=== PATIENT | female | born 1950 | race Caucasian/White ===

== ENCOUNTER 2023-03-22 08:39 | Outpatient (REF) | payer MEDICARE, BC, SELFPAY ==
--- NOTE | ~2023-03-22 | XR_ITS ---
EXAMINATION: XR KNEE STANDING, BILATERAL XR KNEE, LEFT CLINICAL INFORMATION: Left knee pain. COMPARISON: None available. FINDINGS: Bilateral AP Knee: There is moderate loss of medial compartment left knee joint space. Mild loss of medial and lateral compartment right knee and lateral compartment left knee joint space seen. There is periarticular spurring in both compartments of both knees. No loose bodies or bony erosive changes seen. Left Knee: There is severe loss of patellofemoral joint space with mild suprapatellar joint effusion. The patellar articulating surface appears slightly irregular. No loose body seen. No bony erosive changes. XR/XR knee LT 2V IMPRESSION: Moderate degenerative arthritic changes, slightly worse in the medial compartment left knee. Degenerative arthritic changes patellofemoral compartment left knee with mild suprapatellar joint effusion and irregular-appearing patellar articular surface.
--- NOTE | ~2023-03-22 | XR_ITS ---
EXAMINATION: XR KNEE STANDING, BILATERAL XR KNEE, LEFT CLINICAL INFORMATION: Left knee pain. COMPARISON: None available. FINDINGS: Bilateral AP Knee: There is moderate loss of medial compartment left knee joint space. Mild loss of medial and lateral compartment right knee and lateral compartment left knee joint space seen. There is periarticular spurring in both compartments of both knees. No loose bodies or bony erosive changes seen. Left Knee: There is severe loss of patellofemoral joint space with mild suprapatellar joint effusion. The patellar articulating surface appears slightly irregular. No loose body seen. No bony erosive changes. XR/XR knee standing BI IMPRESSION: Moderate degenerative arthritic changes, slightly worse in the medial compartment left knee. Degenerative arthritic changes patellofemoral compartment left knee with mild suprapatellar joint effusion and irregular-appearing patellar articular surface.
== END 2023-03-22 08:40 | disposition home or self-care (01) ==
LOC: HO.HOSX 08:39
PROVIDERS: Visit Provider Orthopaedic Surgery
DX: M17.12 Unilateral primary osteoarthritis, left knee (principal)
CPT/HCPCS: 20610; 73560; 73565; J1100

== ENCOUNTER 2023-03-22 09:48 | Outpatient (AMB) | payer MEDICARE, BC, SELFPAY ==
--- NOTE | 2023-03-22 10:14 | MHC.OFFVIS ---
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 She had x rays updated in the office today. She says her pain started 3 weeks ago but she has had knee pain in the past. She is taking motrin at home for the pain and is using ice with some relief. 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 She has pain with daily activity, worse with walking. She reports intermittent pain for several years but says this is worse in the last 3 weeks. She denies any prior treatment. She denies any falls or known injury. Review of Systems Const All systems reviewed & are unremarkable except as noted in HPI and below Physical Exam Const General: no acute distress, alert and awake Orientation/consciousness: patient oriented x3 HEENT Head: Yes normocephalic and Yes atraumatic Eyes EOM: EOMs intact bilaterally Resp Effort & Inspection: normal respiratory effort and able to speak in complete sentences Cardio Jugular venous distension: no JVD Skin General skin exam: turgor normal Rashes: no rashes Neuro General: patient oriented x3 Extrem Other: Left Knee: Psych Appearance: grossly normal Affect: normal affect Attitude: cooperative Office Procedures Joint Injection/Drain Joint Injection/Drain Details: Injected 1 mL of Decadron and 3 mL 1% lidocaine and 3 mL of 0.25% Marcaine. Site was prepped using aseptic technique. Patient tolerated the procedure well. Primary Site: left knee Approach Used: anterolateral Coding 12961 - Large joint Procedure code (CPT) selection complete Results Reviewed Results Reviewed: 03/22/23 10:32 BUPivacaine MPF 0.25 % [Sensorcaine-MPF 0.25% 10 ML] 10 ml .ROUTE .STK-MED ONE Lidocaine HCl 2 % MPF [Xylocaine 2 % MPF] 5 ml .ROUTE .STK-MED ONE dexAMETHasone sod phosphate [Decadron] 4 mg .ROUTE .STK-MED ONE I personally reviewed relevant radiographs. Severe left knee medial compartment OA Assessment & Plan Assessment & Plan (1) Osteoarthritis of left knee: Code(s): M17.12 - Unilateral primary osteoarthritis, left knee Plan: This is a 72 year old woman with severe left knee medial compartment OA, and ~3 weeks of worsening pain & effusion. She complains of pain with daily activity, worse with ambulation. She denies any prior treatment. I discussed her diagnosis and treatment options. I injected her left knee today, which she tolerated well. She can follow up prn. Plan Scribed for Foster Yen MD by Silas Fernandez, medical insurance claims processor, on 03/22/23 at 10:30 AM, EST. Orders: Orders XR knee standing BI 03/22/23 M25.569 - Pain in unspecified knee XR knee LT 2V 03/22/23 M25.569 - Pain in unspecified knee Coding Level of Care Code New Pt Level 3 (84249) Diagnoses Osteoarthritis of left knee M17.12 CPT Codes Coding - 24066 Large joint: 83168 - Large joint ([id number])
== END 2023-03-22 10:55 | disposition home or self-care (01) ==
PROVIDERS: Visit Provider Orthopaedic Surgery
DX: M17.12 Unilateral primary osteoarthritis, left knee (principal)
CPT/HCPCS: 20610; 99203

== ENCOUNTER 2023-11-30 12:15 | Outpatient (REF) | payer MEDICARE, BC, SELFPAY ==
[2023-11-30 12:16] LABS: MANUAL DIFF FLAG NO
[2023-11-30 12:21] LABS: Basophils Percent Auto 0.5 % (0-2); Eosinophils Absolute Auto 0.1 X10*3/uL (0.0-0.4); Eosinophils Percent Auto 1.2 % (0-4); Hematocrit 40.6 % (37.0-47.0); Hemoglobin 13.7 g/dl (12.0-16.0); Imm Gran Abs Auto 0.02 X10*3/uL (0.00-0.03); Imm Gran Pct Auto 0.3 % (0.0-0.4); Lymphocytes Absolute Auto 1.8 X10*3/uL (1.2-4.9); Lymphocytes Percent Auto 27.5 % (20-40); Mean Corpuscular HGB Conc 33.7 g/dl (31.0-35.0); Mean Corpuscular Hemoglobin 30.2 pg (27.0-33.0); Mean Corpuscular Volume 89.4 fL (80.0-98.0); Mean Platelet Volume 9.6 fL (9.4-12.3); Monocytes Absolute Auto 0.4 X10*3/uL (0.1-1.2); Monocytes Percent Auto 6.5 % (2-11); Neutrophils Absolute Auto 4.2 x10*3/uL (2.0-8.3); Platelet Count 356 X10*3/uL (160-400); Red Blood Count 4.54 X10*6/uL (4.20-5.50); Red Cell Distribution Width 13.2 % (11.0-16.0); White Blood Count 6.5 X10*3/uL (4.8-10.8)
[2023-11-30 12:22] LABS: Appearance Urine Clear; Color Urine Yellow; Glucose Urine UA Negative (Negative); Leukocyte Esterase Urine Small (1+) (Negative); Nitrite Urine Negative (Negative); Specific Gravity - Urine <= 1.005 (1.005-1.025); UMIC TRIGGER UA YES; Urine Blood Negative (Negative); Urine Ketones Negative (Negative); Urine Protein Negative (Neg-Trace)
[2023-11-30 12:39] LABS: Alanine Aminotransferase 13 U/L (0-31); Albumin Level 4.5 g/dL (3.5-5.0); Alkaline Phosphatase 90 U/L (39-117); Anion Gap 11 (12-20); Aspartate Amino Transferase 20 U/L (5-31); Bilirubin Total 0.7 mg/dL (0.0-1.0); Blood Urea Nitrogen 14 mg/dL (9-16); Calcium 10.5 mg/dL (8.4-10.2); Carbon Dioxide 26 mmol/L (22-29); Chloride 104 mmol/L (96-108); Cholesterol 313 mg/dL (<200); Estimated Glomerular Filt Rate > 60; Glucose Fasting 101 mg/dL (60-99); HDL Cholesterol 76 mg/dL (>40); LDL Cholesterol Calculated 214 mg/dL (<100); Sodium 137 mmol/L (135-145); Total Protein 7.6 g/dL (6.5-8.0); Triglycerides 117 mg/dL (<150)
[2023-11-30 12:52] LABS: Bacteria Urine 2+ (None Seen); Hyaline Casts Urine 0-2 /LPF (0-2); RBC Urine 0-2 /HPF (0-2); Squamous Epithelial Cell Urine 0-2 /HPF (0-2); WBC Urine 0-5 /HPF (0-5)
== END 2023-11-30 12:16 | disposition home or self-care (01) ==
LOC: HO.LNP 12:15
PROVIDERS: Visit Provider Internal Medicine
DX: E78.00 Pure hypercholesterolemia, unspecified (principal)
CPT/HCPCS: 80053; 80061; 81001; 85025

== ENCOUNTER 2024-02-11 10:43 | Day surgery (SDC) | payer MEDICARE, SELFPAY ==
--- NOTE | 2024-02-10 09:56 | HO.ANESPROP2 ---
Documented by User: Hannah Yanes NP 02/10/24 09:56 HPI - Anesthesia Eval Consult details Narrative: 73yo F for Upper Endoscopy and Colonoscopy PMFSH Active Problems Active Problems: All Active Problems Osteoarthritis of left knee (Acute) Past Medical History Medical History Encounter for Hemoccult screening Hypercalcemia Hyperlipidemia Social History Social History Are you a primary medicare biller to a significant other at home: No Do you presently have visiting nurse or other home services: No Patient Tobacco Use Status: Never used Tobacco Use of substances other than those prescribed or required for medical reasons: No Have you been hit, kicked, punched, or otherwise hurt by someone within the past year? If so, by whom?: No Advance Directives: No Advance Directives Information Provided: Yes Recently lost weight without trying: No Meds Allergies Allergy/AdvReac Type Severity Reaction Status Date / Time No Known Allergies Allergy Verified 03/22/23 10:16 Home Medications ?Medication ?Instructions ?Recorded ?Confirmed ?Last Taken ?Type calcium 500 mg tablet 500 mg PO BID 02/10/24 Unknown History rosuvastatin 20 mg tablet 20 mg PO DAILY 02/10/24 Unknown History Assessment and Plan Assessment Anesthesia Assessment: Chart Reviewed Documented by User: Alma Sheffield MD 02/11/24 11:15 PMFSH Past Medical History Medical History Encounter for Hemoccult screening Hypercalcemia Hyperlipidemia Family History Family history of problems with anesthesia: No Surgical History History of Problems with Anesthesia: No Social History Social History Are you a primary medicare biller to a significant other at home: No Do you presently have visiting nurse or other home services: No Patient Tobacco Use Status: Never used Tobacco Use of substances other than those prescribed or required for medical reasons: No Have you been hit, kicked, punched, or otherwise hurt by someone within the past year? If so, by whom?: No Advance Directives: No Advance Directives Information Provided: Yes Recently lost weight without trying: No Meds Allergies Allergy/AdvReac Type Severity Reaction Status Date / Time No Known Allergies Allergy Verified 03/22/23 10:16 Home Medications ?Medication ?Instructions ?Recorded ?Confirmed ?Last Taken ?Type calcium 500 mg tablet 500 mg PO BID 02/10/24 Unknown History rosuvastatin 20 mg tablet 20 mg PO DAILY 02/10/24 Unknown History Exam Airway Mallampati Class: II TM Dist: >3cm Neck ROM: Limited Heart: rrr Lungs: cta Assessment and Plan Assessment Anesthesia Assessment: Anesthesia Plan Discussed Final Anesthetic Review Family History of Problems with Anesthesia: No History of Problems with Anesthesia: No NPO: Yes ASA Class: II Final Preanesthetic Review: No Changes in Pt Med Stat, Meds/Allgs Chart Reviewed, Consent Obtained/Reviewed and Anes Risks/Benef Reviewed Patient Risk: Low Procedure Risk: Low Anesthetic Plan Anesthetic Plan: MAC: Disposition: Standard PACU
--- NOTE | 2024-02-11 10:50 | MHC.SHP ---
Pre-Procedural Eval Section A - 24 Hr Update-Section A only Date of Service: 02/11/24 The patient is an INPATIENT: No Changes since office visit: No Cold of Flu in the past 2 weeks, No New Medical Problems, No Changes in Medication and No Patient answered all questions The patient has been examined within 24 hours of the surgical procedure. The History & Physical has been completed within 30 days and I have reviewed it.: Yes Section B - Complete if H&P > 30 days Chief Complaint: Other fecal abnormalities Allergies: Allergies Allergy/AdvReac Type Severity Reaction Status Date / Time No Known Allergies Allergy Verified 03/22/23 10:16 Plan I have reviewed the history and physical and performed a pertinent physical examination on my patient. No changes have occurred unless specified. Time Spent With Patient Time: Total time managing care of this patient today ____ minutes.
[2024-02-11 10:52] VITALS: BP 156/61; PULSE 71; RESP 16; TEMP 36.7; O2SAT 97; BMI 22.1
[2024-02-11] MEDS: Lactated Ringers 1,000 ML 100 ML IVCONT (11:04)
[2024-02-11 11:55] VITALS: BP 145/69; PULSE 60; RESP 12; TEMP 36.3; O2SAT 97
[2024-02-11 12:10] VITALS: BP 155/68; PULSE 57; RESP 18; TEMP 36.2; O2SAT 97
--- NOTE | 2024-02-11 13:21 | OP_ITS ---
DATE OF SERVICE: 02/11/2024 SURGEON: Nelson Delgado MD INDICATIONS: Hemoccult positive stools. PREOPERATIVE DIAGNOSIS: POSTOPERATIVE DIAGNOSIS: PROCEDURE PERFORMED: Upper endoscopy with biopsy, colonoscopy to the terminal ileum. ESTIMATED BLOOD LOSS: COMPLICATIONS: ANESTHESIA: Monitored anesthesia care. ASSISTANTS: SPECIMENS: DESCRIPTION OF PROCEDURE: A history and physical was performed. The risks and benefits of the procedure were explained to the patient and informed consent was obtained. The patient was placed in the left lateral decubitus position. The Olympus video gastroscope was introduced into the esophagus, stomach, and duodenum. Examination was performed and the scope was removed. She was repositioned for colonoscopy. A digital rectal exam was performed and was found to be normal. The Olympus pediatric video colonoscope was introduced into the rectum and advanced to the cecum. The cecum was identified by transillumination, palpation, and identification of ileocecal valve. Examination was performed and the scope was removed. She tolerated both procedures well and was returned to recovery area in stable condition. FINDINGS: Upper endoscopy, esophagus: The esophagus was normal. There was a small sliding hiatal hernia. The EG junction was irregular. This was biopsied. Stomach: The stomach showed some focal linear streaks of erythema with superficial erosions in the antrum consistent with antral gastritis. Biopsies were obtained from the antrum. Duodenum: The bulb and 2nd portion were normal. Colonoscopy: The terminal ileum was examined and appeared normal. The visualized colonic mucosa was normal. There was moderate sigmoid diverticulosis with luminal narrowing and a tortuous sigmoid. No mass lesions were identified. The quality of prep was good. No polyps were identified. Retroflexed examination showed some small internal hemorrhoids. IMPRESSION: 1. Gastritis. 2. Hiatal hernia. 3. Normal colonoscopy with diverticulosis. RECOMMENDATION: Follow up the biopsy results Screening colonoscopy is optional in 10 years based on age. MD LUDIN Schmidt/KARENL / [id number] MTDChela
== END 2024-02-11 13:15 | disposition home or self-care (01) ==
PROVIDERS: PCP Internal Medicine; Visit Provider Internal Medicine Gastroenterology
PROC: (CPT 45378; principal; 2024-02-11 11:40)
DX: R19.5 Other fecal abnormalities (principal); K57.30 Diverticulosis of large intestine without perforation or abscess without bleeding; K64.8 Other hemorrhoids; K29.50 Unspecified chronic gastritis without bleeding; K44.9 Diaphragmatic hernia without obstruction or gangrene; E78.5 Hyperlipidemia, unspecified; E83.52 Hypercalcemia; Z79.899 Other long term (current) drug therapy
CPT/HCPCS: 45378; 43239; 88305; 88313; 88342; J2405; J2704

== ENCOUNTER 2024-04-25 11:20 | Outpatient (REF) | payer MEDICARE, SELFPAY ==
[2024-04-25 12:50] LABS: Alanine Aminotransferase 18 U/L (0-31); Albumin Level 4.5 g/dL (3.5-5.0); Alkaline Phosphatase 85 U/L (39-117); Aspartate Amino Transferase 23 U/L (5-31); Bilirubin Direct 0.3 mg/dL (0.0-0.5); Bilirubin Total 0.8 mg/dL (0.0-1.0); Calcium 10.4 mg/dL (8.4-10.2); Cholesterol 203 mg/dL (<200); HDL Cholesterol 79 mg/dL (>40); LDL Cholesterol Calculated 107 mg/dL (<100); Total Protein 7.4 g/dL (6.5-8.0); Triglycerides 85 mg/dL (<150)
== END 2024-04-25 11:21 | disposition home or self-care (01) ==
LOC: HO.LNP 11:20
PROVIDERS: Visit Provider Internal Medicine
DX: E78.00 Pure hypercholesterolemia, unspecified (principal); E83.52 Hypercalcemia
CPT/HCPCS: 80061; 80076; 82310

== ENCOUNTER 2025-01-11 16:09 | Outpatient (REF) | payer MEDICARE, SELFPAY | END 2025-01-11 16:10 | disposition home or self-care (01) | LOC: HO.HOSX 16:09 | PROVIDERS: Visit Provider Physician Assistant | DX: Z13.89 Encounter for screening for other disorder (principal) ==

== ENCOUNTER 2025-01-12 07:58 | Outpatient (AMB) | payer MEDICARE, SELFPAY ==
--- OUTSIDE RECORDS SUMMARY | 2024-02-11 07:40 | XMS_ITS ---
Author Organization [facility] Address [address] [place] [phone] Care Team Providers Care Analytics Manager Name Role Phone Luther BENAVIDES, Mariano Primary Care Provider Nelson Rocha Jr [phone] REASON FOR VISIT abnormal findings in stool Problems Problem Type SNOMED Code ICD Code Onset Dates Problem Status W/U Status Risk Notes Problem Gastritis (6670775) Gastritis (K29.70) Active confirmed Encounters Encounter Location Date Provider Diagnosis [facility] [place] [address] [place] [phone] 02/11/2024 Nelson Delgado Jr Abnormal findings in [...] * ANAHI CHANCE HDOB:1950 (74 yo F)Acc No.[id number]:02/11/2024 EGD and COL/MAC Patient: ANAHI VERDUGO Provider: Xiomara Delgado MD :1950 A ge:73 Y S ex:Female Date:02/11/2024 Address:[address] [place], [place] [phone] Pcp:Mariano Sloan MD Subjective: * Chief Complaints: [...] DOCD, 0528F RCMND FLW-UP 10 YRS DOCD, [address] UPPER GI ENDOSCOPY, BIOPSY * * The named appointment provid er may or may not be the originator of this progress note, and it is not deemed complete until electronically signed by the appointment provider. Sign off status: Pending * Provider: Xiomara Delgado MD Date: 0 02/11/2024 Generated for Galileo fried/Dafne/Doniitting on: 0 01/12/2025 08:01 AM EDT
--- OUTSIDE RECORDS SUMMARY | 2025-01-12 08:02 | XMS_ITS | Patient Health Record ---
Author Organization Mariano Sloan MD Address [address] [place] [phone] Care Team Providers Care Negative Retoucher Name Role Phone Mariano Sloan Primary Care Provider [phone] Allergies No Known Allergies Results Component Value Reference Range Notes MAMMOGRAM DIGITAL BILATERAL SCREEN Reviewed date:02/11/2024 01:19:22 PM Interpretation:Negative Performing Lab: Notes/Report: Negative colonoscopy Reviewed date:03/24/2024 10:54:45 AM Interpretation:repeat 10y Performing Lab: Notes/Report: repeat 10y Pathology Reviewed date:02/17/2024 06:50:33 PM Interpretation: Performing Lab:[facility], [address] [place] [phone] Notes/Report: ---- Name: Damaris Cates Age/Sex: 73/F : 1950 Unit#: [id number] Attend Dr: Nelson Delgado MD Re02/11/24 Status : [facility] Location: [facility] Disch: ---- SPEC : [id number] RECD : 02/11/24 STATUS: [facility] NUM: [id number] MIRTA: 02/11/24-[address]: Nelson Delgado MD ENTERED: 02/11/24 20 SP TYPE: Surgical OTHR DR: Mariano Sloan MD ORDERED: HE Stain/6, Gross Micro L4/2, IHC, Special st. 2, H. pylori, AB/PAS Addendum Addendum 1 Entered: 02/17/24 Immunostain for H. pylori on A is negative. Additional level with AB/PAS on B is negative for intestinal metaplasia. Controls stain appropriately. Addendum Signed (signature on file) Cristina Connors 02/17/24 1036 ---- Diagnosis A. Gastric antrum, biopsy: Gastric antral mucosa with mild reactive changes and minimal chronic inactive gastritis; negative for intestinal metaplasia and dysplasia. B. Esophagogastric junction, biopsy: Squamous mucosa with hyperplasia and focal intraepithelial neutrophils and eosinophils (up to 2 per high-power field) consistent with esophagitis and columnar mucosa with mild-moderate chronic active inflammation; no intestinal metaplasi a identified on initial levels; negative for dysplasia Comment: (A): Immunostain for H. pylori pending; addendum to follow. (B): Additional leve l with AB/PAS stain pending; addendum to follow. Clinical History Pre-Op Dx: Blood in stool Post-Op Dx: Gastriti s, hiatal hernia, normal colon Microscopic Description Microscopic sections reviewed. Material Received A. Antral bx's B. EG junction bx's CONTINUED ON NEXT PAGE ---- Name: Damaris Cates Age/Sex: 73/F : 1950 Unit#: [id number] Attend Dr: Nelson Delgado MD Re02/11/24 Status : [facility] Location: [facility] Disch: ---- SPEC : [id number] RECD : 02/11/24-1206 STATUS: [facility] NUM: [id number] MIRTA: 02/11/[address] [facility] [address]: Nelson Delgado MD ENTERED: 02/11/24- 20 SP TYPE: Surgical OTHR DR: Mariano Sloan MD ORDERED: HE Stain/6, Gross Micro L4/2, IHC, Special st. 2, H. pylori, AB/PAS Gross Description Received in two parts. Part A: Received in formalin labeled ?antral bx's? are 2 denney-pink irregular tissue fragments each measu ring 0.25 cm in greatest dimension, submitted in toto in a cassette labeled A. Part B: Received in formalin labeled ?EG junction bx's? are 5 denney-white and denney-pink irregular tissue fragments ranging from 0.15-0.3 cm, submitted in toto in a cassette labeled B. CEDS Special studies orde red and performed: Immunostain for H. pylori on A1; AB/PAS stains on B1. Copies To: Mariano Sloan MD [facility] [address] [place] [id number] Nelson Delgado MD [facility] [address] ROB Fletcher [phone] ---- Signed (signature on file) Cristina Byars 02/14/24 1250 ---- END OF REPORT Liver Panel Reviewed date:04/25/2024 08:03:12 PM Interpretation: Performing Lab:[address] [phone] Notes/Report: Bilirubin Total 0.8 0.0-1.0 mg/dL Bilirubin Direct 0.3 0.0-0.5 mg/dL Aspartate Amino Transferase 23 5-31 U/L Alanine Aminotransferase 18 0-31 U/L Total Protein 7.4 6.5-8.0 g/dL Albumin Level 4.5 3.5-5.0 g/dL Alkaline Phosphatase 85 39-117 U/L Calcium Reviewed date:04/25/2024 08:03:39 PM Interpretation: Performing Lab:[address] [phone] Notes/Report: Calcium 10.4 8.4-10.2 mg/dL Lipid Panel Reviewed date:04/25/2024 08:03:02 PM Interpretation: Performing Lab:[facility], [address] [place] [phone] Notes/Report: Triglycerides 85 <150 mg/dL Desirable Triglyceride: [...] low results in patients with liver disease. Reason For Referral Reason Colon cancer screeni ng Diagnosis 1 Colon cancer screeni ng (Z12.11) Diagnosis 2 Guaiac positive stoo ls (R19.5) Referral Organization Mariano Sloan MD Referring Provider First Name Mariano Referring Provider Last Name Luther Referring Provider Speciality Internal M edicine Referred Provider Nelson Delgado Referred Provider Specialty Gastroentero logy General Notes Adleaida Eastman 03:29:24 PM EDT > info faxed Jaren Annette 01/28/2024 09:30:51 AM EDT > called patient with info Referral Priority Routine Referral Appointment Date 01/31/2024 Medications Medication SIG (Take, Route, Frequency, Duration) Notes Start Date End Date Status Rosuvastatin Calcium 20 MG 1 tablet Oral ly Once a day 01/25/2024 Active Immunizations Vaccine Route Administration Date Status Comme nts Influenza High Dose IM Intramuscular 04/25/2024 Administer ed Social History Tobacco Use: Social History Observation [...] Problem Status W/U Status Risk Notes Problem Hypercholesterem ia (272.0) Active confirmed Problem 39847767 Hypercalcemia (E83.52) Active confirme d Problem 51346575 Essential hypert ension (I10) Active confirmed Problem 06297696 Hypercholesterol emia (E78.00) Active confirmed Vital Signs Blood pressure diastolic 76 mm Hg 05/02/2024 Height 61 in 05/02/2024 Blood pressure systolic 130 mm Hg 05/02/2024 Weight 121 lbs 05/02/2024 BMI 22.86 kg/m2 05/02/2024 Encounters Encounter Location Date Provider Diagnosis Mariano Sloan MD [address] [place] [address] Drive [address] [place] [phone] 04/25/2024 Mariano Sloan Hypercalcemia E83.52 ; Encounter for immunization Z23 and Hypercholesterolemia E78.00 Mariano Sloan MD [address] [place] [address] Drive [address] [place] [phone] 01/25/2024 Mariano Sloan Colon cancer screeni ng Z12.11 ; Hypercholesterolemia E78.00 ; Hypercalcemia E83.52 and Guaiac positive stools R19.5 Mariano Sloan MD [address] [place] [address] Drive [address] [place] [phone] 05/02/2024 Mariano Sloan Hypercalcemia E83.52 and Hypercholesterolemia E78.00 Assessments Encounter Date Diagnosis (ICD Code) Assessment Notes Treatment Notes Treatment Clinical Notes Section Notes 04/25/2024 Hypercalcemia (ICD-1 0 - E83.52) 04/25/2024 Encounter for immunization (ICD-10 - Z23) 01/25/2024 Colon cancer screeni ng (ICD-10 - Z12.11) make appt with dr ruffin or aliya, guaiac positive 01/25/2024 Hypercholesterolemia (ICD-10 - E78.00) discussed labs with patient, will initiate treatment with statin 05/02/2024 Hypercalcemia (ICD-1 0 - E83.52) just minimally up will just observe 05/02/2024 Hypercholesterolemia (ICD-10 - E78.00) doing great on meds, will continue current regiment 04/25/2024 Hypercholesterolemia (ICD-10 - E78.00) 01/25/2024 Hypercalcemia (ICD-1 0 - E83.52) 01/25/2024 Guaiac positive stoo ls (ICD-10 - R19.5) make urgent appt with dr ruffin or aliya 01/25/2024 Other mammogram order given to patient being done at [facility], patient verbalized understanding of medication and directions for use. Plan Of Treatment Pending Test Test Name Order Date MAMMOGRAM DIGITAL BILATERAL SCREEN 01/24 Next Appt Details Provider Name:Mariano Caballero ier, 01/19/2025 07:00:00 AM, [address] [place] [address], [facility] [address], [place], [place], [phone], Provider Name:Mariano Caballero ier, 01/26/2025 11:00:00 AM, [address] [place] [address], [address], [place], [place], [phone], Insurance Providers Payer Name Payer Address Payer Phone Subscriber Number Group Number Insured Name Patient Relationship to Insured Coverage Start Date Coverage End Date [employer] [address] [place] [address] [id number] Damaris Cates Self - patient is the insured [employer] [facility] [address] [place], [place] [phone] [id number] Damaris Cates Self - patient is the insured Medical (General) History Medical History History ICD Code due for colonoscopy 02/11/24 colonoscopy- repeat 10y
--- NOTE | 2025-01-12 08:14 | MHC.OFFVIS ---
Vital Signs 01/12/25 08:20 Height 5 ft 1 in Weight 116 lb BMI 21.9 Intake Visit Reasons: OV - LT knee OA, last injection 03/22/23 Intake Note: Damaris is a 74 year old female who presents today for a follow up of left knee OA, last injection on 03/22/[address] Yen. Patient reports injection provided no relief at all. Her pain has gotten worse since her last visit. Her pain is located at the anterior aspect of knee. She has mild swelling. Finds no relief with Tylenol/ibuprofen. Tried and failed at home exercise programs. Patient would like to discuss other options such as gel injections. Allergies No Known Allergies Allergy (Verified 01/12/25 08:22) Medication List - Last Reconciled 01/12/25 by Mickie Desir PA-C calcium 500 mg PO BID rosuvastatin 20 mg PO DAILY HPI HPI OV - LT knee OA, last injection 03/22/23: Details: 74 yo female presents to the office today for left knee pain which is constant. She states the pain does not limit her ability to perform daily activities. She did see Dr. Yen in 2022 and had an injection which she states was not helpful. She states she has not done physical therapy. Most of her pain is localized to the anterior portion of the knee. [facility] Medical History Encounter for Hemoccult screening Hypercalcemia Hyperlipidemia Social History Are you a primary career technical education teacher to a significant other at home: No Do you presently have visiting nurse or other home services: No Patient Tobacco Use Status: Never used Tobacco Review of Systems Const All systems reviewed & are unremarkable except as noted in HPI and below Physical Exam Vital Signs: BMI result Body Mass Index 21.9 Const General: cooperative and no acute distress Orientation/consciousness: patient oriented x3 Resp Effort & Inspection: normal respiratory effort and able to speak in complete sentences Cardio Peripheral pulses: Peripheral pulses 2+ throughout Neuro General: patient oriented x3 Extrem Other: Left knee is normal to inspection. No erythema. No joint effusion. She has full range of motion with crepitus. Lateral retropatellar tenderness present. Calf supple and nontender neurovascularly intact. Results Reviewed Results Reviewed: X-rays of the left knee obtained in the office today and reviewed by me show severe osteoarthritis Assessment & Plan Assessment & Plan (1) Osteoarthritis of left knee: Code(s): M17.12 - Unilateral primary osteoarthritis, left knee Category: Medical Plan: We discussed options which includes conservative treatment with physical therapy and injections. She is not interested in attending formal physical therapy. I did offer her a steroid injection but she would like to defer on this as it has not helped in the past. At this time we will proceed with prior authorization for gel injections. She is not interested in total knee arthroplasty as she is still able to perform activities without significant limitations. I did send her a prescription for Celebrex for acute flare-ups. We will see her back once the injections are approved. Orders: Orders XR knee LT 3V Today M25.562 - Pain in left knee Medications: New celecoxib (Celebrex) 200 mg PO BID 60 caps 3RF 30 days Coding Level of Care Code New Pt Level 3 (61982) Complex EM visit Add On G2211 Diagnoses Osteoarthritis of left knee M17.12
[2025-01-12 08:20] VITALS: BMI 21.9
== END 2025-01-12 08:36 | disposition home or self-care (01) ==
LOC: HO.HOS 07:59
PROVIDERS: PCP Internal Medicine; Visit Provider Physician Assistant
DX: M17.12 Unilateral primary osteoarthritis, left knee (principal)
CPT/HCPCS: 99203; G2211

== ENCOUNTER → 2025-01-12 08:01 | Outpatient (BNV) | payer MEDICARE, SELFPAY | PROVIDERS: Visit Provider Radiology Diagnostic Radiology | DX: M25.562 Pain in left knee (principal) | CPT/HCPCS: 73562 ==

== ENCOUNTER 2025-01-12 08:08 | Outpatient (REF) | payer MEDICARE, SELFPAY ==
--- OUTSIDE RECORDS SUMMARY | 2024-02-11 07:40 | XMS_ITS ---
Author Organization [facility] Address [address] [place] [phone] Care Team Providers Care Telecommunications Line Installer Name Role Phone Luther BENAVIDES, Mariano Primary Care Provider Nelson Rocha Jr REASON FOR VISIT abnormal findings in stool Problems Problem Type SNOMED Code ICD Code Onset Dates Problem Status W/U Status Risk Notes Problem Gastritis (2040728) Gastritis (K29.70) Active confirmed Encounters Encounter Location Date Provider Diagnosis [facility] [address] [place] [phone] 02/11/2024 Nelson Delgado Jr Abnormal findings in [...] * ANAHI CHANCE HDOB:1950 (74 yo F)Acc No.[id number]:02/11/2024 EGD and COL/MAC Patient: ANAHI VERDUGO Provider: Xiomara Delgado MD :1950 A ge:73 Y S ex:Female Date:02/11/2024 Address:[address] [place], [place] [phone] Pcp:Mariano lSoan MD Subjective: * Chief Complaints: * 1 [...] DOCD, 0528F RCMND FLW-UP 10 YRS DOCD, [address] UPPER GI ENDOSCOPY, BIOPSY * * The named appointment provid er may or may not be the originator of this progress note, and it is not deemed complete until electronically signed by the appointment provider. Sign off status: Pending * Provider: Xiomara Delgado MD Date: 0 02/11/2024 Generated for Galileo fried/Dafne/Doniitting on: 0 01/15/2025 08:19 AM EDT
--- NOTE | ~2025-01-12 | XR_ITS ---
EXAMINATION: XR KNEE, LEFT CLINICAL INFORMATION: M25.562 - Pain in left knee COMPARISON: 03/22/2023. TECHNIQUE: AP view bilateral knees standing, lateral and patellofemoral views left knee. FINDINGS: RIGHT KNEE: No fracture or dislocation. Normal alignment. Mild to moderate medial and lateral compartment joint space narrowing. Subtle chondrocalcinosis suspected. Normal soft tissues. LEFT KNEE: No fracture, dislocation, or suspicious bone lesion. There is normal alignment. There is moderate to severe medial compartment osteoarthrosis with near [id number] appearance and marginal osteophytic spurring. Suspect subtle chondrocalcinosis. There are moderate changes of osteoarthrosis in the patellofemoral compartment and lateral compartment. There is minimal varus angulation of the knee. There is a small suprapatellar joint effusion. There is no soft tissue abnormality. XR/XR knee LT 3V IMPRESSION: 1. Tricompartmental osteoarthrosis of the left knee, moderate to severe in the medial compartment. 2. Suspect subtle chondrocalcinosis which may indicate underlying CPPD. Electronically signed by: Chava Damian MD 01/12/2025 08:38 AM EDT
--- OUTSIDE RECORDS SUMMARY | 2025-01-15 08:19 | XMS_ITS | Patient Health Record ---
Author Organization Mariano Sloan MD Address [address] [place] [phone] Care Team Providers Care Activities Volunteer Name Role Phone Mariano Sloan Primary Care Provider Allergies No Known Allergies Results Component Value Reference Range Notes MAMMOGRAM DIGITAL BILATERAL SCREEN Reviewed date:02/11/2024 01:19:22 PM Interpretation:Negative Performing Lab: Notes/Report: Negative colonoscopy Reviewed date:03/24/2024 10:54:45 AM Interpretation:repeat 10y Performing Lab: Notes/Report: repeat 10y Pathology Reviewed date:02/17/2024 06:50:33 PM Interpretation: Performing Lab:[facility], [address] [place] [phone] Notes/Report: ---- Name: Damaris Cates Age/Sex: 73/F : 1950 Unit#: [id number] Attend Dr: Nelson Delgado MD Re02/11/24 Status : [facility] Location: [facility] Disch: ---- SPEC : [id number] RECD : 02/11/24 STATUS: [facility] NUM: [id number] MIRTA: 02/11/24-[address]: Nelson Delgado MD [...] Damaris Cates Age/Sex: 73/F : 1950 Unit#: [id number] Attend Dr: Nelson Delgado MD Re02/11/24 Status : [facility] Location: [facility] Disch: ---- SPEC : [id number] RECD : 02/11/24-1206 STATUS: [facility] NUM: [id number] MIRTA: 02/11/[address] [facility] [address]: Nelson Delgado MD ENTERED: 02/11/24- 20 [...] To: Mariano Sloan MD [facility] [address] [place] [address] [facility] [address] ROB Fletcher [phone] ---- Signed (signature on file) Cristina Fairbanks 02/14/24 1250 ---- END OF REPORT Liver Panel Reviewed date:04/25/2024 08:03:12 PM Interpretation: Performing Lab:[address] [phone] Notes/Report: Bilirubin Total 0.8 0.0-1.0 mg/dL Bilirubin Direct 0.3 0.0-0.5 mg/dL Aspartate Amino Transferase 23 5-31 U/L Alanine Aminotransferase 18 0-31 U/L Total Protein 7.4 6.5-8.0 g/dL Albumin Level 4.5 3.5-5.0 g/dL Alkaline Phosphatase 85 39-117 U/L Calcium Reviewed date:04/25/2024 08:03:39 PM Interpretation: Performing Lab:[address] [phone] Notes/Report: Calcium 10.4 8.4-10.2 mg/dL Lipid Panel Reviewed date:04/25/2024 08:03:02 PM Interpretation: Performing Lab:[facility], [address] [place] [phone] Notes/Report: Triglycerides 85 <150 mg/dL Desirable Triglyceride: [...] Problem Hypercholesterem ia (272.0) Active confirmed Problem 79780403 Hypercalcemia (E83.52) Active confirme d Problem 25698209 Essential hypert ension (I10) Active confirmed Problem 02360987 Hypercholesterol emia (E78.00) Active confirmed Vital Signs Blood pressure diastolic 76 mm Hg 05/02/2024 Height 61 in 05/02/2024 Blood pressure systolic 130 mm Hg 05/02/2024 Weight 121 lbs 05/02/2024 BMI 22.86 kg/m2 05/02/2024 Encounters Encounter Location Date Provider Diagnosis Mariano Sloan MD [address] [place] [address] Drive [address] [place] [id number] 04/25/2024 Mariano Sloan Hypercalcemia E83.52 ; Encounter for immunization Z23 and Hypercholesterolemia E78.00 Mariano Sloan MD [address] [place] [address] Drive [address] [place] [id number] 01/25/2024 Mariano Sloan Colon cancer screeni ng Z12.11 ; Hypercholesterolemia E78.00 ; Hypercalcemia E83.52 and Guaiac positive stools R19.5 Mariano Sloan MD [address] [place] [address] Drive [address] [place] [id number] 05/02/2024 Mariano Sloan Hypercalcemia E83.52 and Hypercholesterolemia [...] order given to patient being done at [facility], patient verbalized understanding of medication and directions for use. Plan Of Treatment Pending Test Test Name Order Date MAMMOGRAM DIGITAL BILATERAL SCREEN 01/24 Next Appt Details Provider Name:Mariano Caballero ier, 01/19/2025 07:00:00 AM, [address] [place] [address], [facility] [address], [place], [place], [phone], Provider Name:Mariano Caballero ier, 01/26/2025 11:00:00 AM, [address] [place] [address], [address], [place], [place], [phone], Insurance Providers Payer Name Payer Address Payer Phone Subscriber Number Group Number Insured Name Patient Relationship to Insured Coverage Start Date Coverage End Date [employer] [address] [place] [address] [id number] Damaris Cates Self - patient is the insured [employer] AND [facility] [address] [place], [place] [id number] Damaris Cates Self - patient is the insured Medical (General) History Medical History History ICD Code due for colonoscopy 02/11/24 colonoscopy- repeat 10y
== END 2025-01-12 08:09 | disposition home or self-care (01) ==
LOC: HO.HOSX 08:08
PROVIDERS: Visit Provider Physician Assistant
DX: M17.12 Unilateral primary osteoarthritis, left knee (principal)
CPT/HCPCS: 73562; 99202

== ENCOUNTER 2025-01-19 10:39 | Outpatient (REF) | payer MEDICARE, SELFPAY ==
--- OUTSIDE RECORDS SUMMARY | 2024-02-11 07:40 | XMS_ITS ---
Author Organization [facility] Address [address] [place] [phone] Care Team Providers Care Sweetbread Trimmer Name Role Phone Luther BENAVIDES, Mariano Primary Care Provider Nelson Rocha Jr [phone] REASON FOR VISIT abnormal findings in stool Problems Problem Type SNOMED Code ICD Code Onset Dates Problem Status W/U Status Risk Notes Problem Gastritis (6159108) Gastritis (K29.70) Active confirmed Encounters Encounter Location Date Provider [place] [facility] [place] [place] [address] [place] [phone] 02/11/2024 Nelson Delgado Jr Abnormal findings in [...] * ANAHI CHANCE HDOB:1950 (74 yo F)Acc No.[id number]:02/11/2024 EGD and COL/MAC Patient: ANAHI VERDUGO Provider: Xiomara Delgado MD :1950 A ge:73 Y S ex:Female Date:02/11/2024 Address:[address] [place], [place] [phone] Pcp:Mariano Sloan MD Subjective: * Chief Complaints: [...] DOCD, 0528F RCMND FLW-UP 10 YRS DOCD, [address] UPPER GI ENDOSCOPY, BIOPSY * * The named appointment provid er may or may not be the originator of this progress note, and it is not deemed complete until electronically signed by the appointment provider. Sign off status: Pending * Provider: Xiomara Delgado MD Date: 0 02/11/2024 Generated for Galileo fried/Dafne/Doniitting on: 0 01/19/2025 10:44 AM EDT
--- OUTSIDE RECORDS SUMMARY | 2025-01-19 03:00 | XMS_ITS ---
Author Organization Mariano Sloan MD Address [address] [place] [phone] Care Team Providers Care City Attorney Name Role Phone Mariano Sloan Primary Care Provider REASON FOR VISIT yearly fasting labs Encounters Encounter Location Date Provider Diagnosis Mariano Sloan MD [address] [place] [address] Drive [address] [place] [phone] 01/19/2025 Mariano Sloan Hypercholesterolemia E78.00 ; Hypercalcemia E83.52 and Essential hypertension I10 Assessments Encounter Date Diagnosis (ICD Code) Assessment Notes Treatment Notes Treatment Clinical Notes Section Notes 01/19/2025 Hypercholesterolemia (ICD-10 - E78.00) 01/19/2025 Hypercalcemia (ICD-1 0 - E83.52) 01/19/2025 Essential hypertensi on (ICD-10 - I10) Plan Of Treatment Pending Test Test Name Order Date Complete Blood Count Auto Diff 5 Comprehensive [place]. Panel Fast 5 Lipid Panel 01/19/2025 UA ClnCatch+Micro w/rflx Cult 01/19/2025 Next Appt Details Provider Name:Mariano Caballero ier, 01/26/2025 11:00:00 AM, [address], [address], [place], [place], [phone], Progress Notes * ROBSONAlmazYolandaOB:1950 ( 74 yo F)Acc No.[id number]:01/19/2025 Progress Note Patient: Damaris VERDUGO Provider: Tana Sloan MD :1950 A ge:74 Y S ex:Female Date:01/19/2025 Address:[place], [phone] Subjective: * Chief Complaints: * 1 . Yearly fasting labs. * Medical History: Objective: * Vitals: Assessment: * Assessment: 1. H ypercholesterolemia - E78.00 (Primary) 2 . H ypercalcemia - E83.52? 3. E ssential hypertension - I10 Plan: * Treatment: 2. H ypercalcemia L AB: Complete Blood Count Auto Diff L AB: Comprehensive [place]. Panel Fast L AB: Lipid Panel L AB: UA ClnCatch+Micro w/rflx Cult 3. E ssential hypertension L AB: Complete Blood Count Auto Diff L AB: Comprehensive [place]. Panel Fast L AB: Lipid Panel L AB: UA ClnCatch+Micro w/rflx Cult * Procedure Codes: 3 6415 VENIPUNCT, ROUTINE* * * The named appointment provid er may or may not be the originator of this progress note, and it is not deemed complete until electronically signed by the appointment provider. Sign off status: Pending * Provider: Tana Sloan MD Date: 01/19/2025 Generated for Galileo fried/Dafne/Doniitting on: 01/19/2025 10:44 AM EDT
[2025-01-19 10:42] LABS: MANUAL DIFF FLAG NO
[2025-01-19 10:56] LABS: Hematocrit 42.4 % (37.0-47.0); Hemoglobin 14.5 g/dl (12.0-16.0); Imm Gran Abs Auto 0.02 X10*3/uL (0.00-0.03); Imm Gran Pct Auto 0.3 % (0.0-0.4); Lymphocytes Absolute Auto 2.7 X10*3/uL (1.2-4.9); Mean Corpuscular HGB Conc 34.2 g/dl (31.0-35.0); Mean Corpuscular Hemoglobin 30.5 pg (27.0-33.0); Mean Corpuscular Volume 89.3 fL (80.0-98.0); NRBC Abs Auto 0.000 X10*3/uL (0.0-0.012); NRBC Pct Auto 0.0 /100WBC (0.0-0.2); Platelet Count 336 X10*3/uL (160-400); Red Blood Count 4.75 X10*6/uL (4.20-5.50); White Blood Count 7.3 X10*3/uL (4.8-10.8)
[2025-01-19 11:03] LABS: Appearance Urine Cloudy; Glucose Urine UA Negative (Negative); PH 6.0 (5.0-9.0); Specific Gravity - Urine 1.015 (1.005-1.025); UMIC TRIGGER UACC YES
[2025-01-19 11:12] LABS: Alanine Aminotransferase 16 U/L (0-31); Albumin Level 4.9 g/dL (3.5-5.0); Alkaline Phosphatase 95 U/L (39-117); Anion Gap 14 (12-20); Aspartate Amino Transferase 23 U/L (5-31); Blood Urea Nitrogen 13 mg/dL (9-16); Calcium 10.6 mg/dL (8.4-10.2); Carbon Dioxide 26 mmol/L (22-29); Chloride 99 mmol/L (96-108); Cholesterol 201 mg/dL (<200); Estimated Glomerular Filt Rate > 60; HDL Cholesterol 70 mg/dL (>40); Potassium 4.0 mmol/L (3.3-5.1); Sodium 135 mmol/L (135-145); Total Protein 7.6 g/dL (6.5-8.0); Triglycerides 117 mg/dL (<150)
[2025-01-19 11:15] LABS: UACC Culture Trigger YES
== END 2025-01-19 10:40 | disposition home or self-care (01) ==
LOC: HO.LNP 10:39
PROVIDERS: Visit Provider Internal Medicine
DX: E83.52 Hypercalcemia (principal); I10 Essential (primary) hypertension; E78.00 Pure hypercholesterolemia, unspecified
CPT/HCPCS: 80053; 80061; 81001; 85025; 87086; 87088; 87186

== ENCOUNTER 2025-02-02 10:43 | Outpatient (REF) | payer MEDICARE, SELFPAY ==
--- OUTSIDE RECORDS SUMMARY | 2024-02-11 07:40 | XMS_ITS ---
Author Organization [facility] Address [address] [place] [phone] Care Team Providers Care Gmat Tutor Name Role Phone Luther BENAVIDES, Mariano Primary Care Provider Nelson Rocha Jr REASON FOR VISIT abnormal findings in stool Problems Problem Type SNOMED Code ICD Code Onset Dates Problem Status W/U Status Risk Notes Problem Gastritis (8244343) Gastritis (K29.70) Active confirmed Encounters Encounter Location Date Provider Diagnosis [facility] [place] Out[place] [address] [place] [phone] 02/11/2024 Nelson Delgado Jr Abnormal findings in [...] * ANAHI CHANCE HDOB:1950 (74 yo F)Acc No.[id number]:02/11/2024 EGD and COL/MAC Patient: ANAHI VERDUGO Provider: Xiomara Delgado MD :1950 A ge:73 Y S ex:Female Date:02/11/2024 Address:[address] [place], [place] [phone] Pcp:Mariano Sloan MD Subjective: * Chief Complaints: [...] DOCD, 0528F RCMND FLW-UP 10 YRS DOCD, [address] UPPER GI ENDOSCOPY, BIOPSY * * The named appointment provid er may or may not be the originator of this progress note, and it is not deemed complete until electronically signed by the appointment provider. Sign off status: Pending * Provider: Xiomara Delgado MD Date: 0 02/11/2024 Generated for Galileo fried/Dafne/Doniitting on: 0 02/02/2025 11:21 AM EDT
--- OUTSIDE RECORDS SUMMARY | 2024-05-02 06:00 | XMS_ITS ---
Author Organization Mariano Sloan MD Address [address] [place] [phone] Care Team Providers Care Digital Solutions Architect Name Role Phone Mariano Sloan Primary Care Provider [phone] REASON FOR VISIT 3 month Medications Medication [...] Location Date Provider Diagnosis Mariano Sloan MD [address] [place] [address] [place] [phone] 05/02/2024 Mariano Sloan Hypercalcemia E83.52 and Hypercholesterolemia [...] Details Provider Name:Mariano zuniga, 07/20/2025 08:00:00 AM, [address] [place] [address], Suite [facility], [place], [place], [phone], Provider Name:Mariano Caballero ier, 07/27/2025 10:00:00 AM, [address], [address], [place], [place], [phone], Provider Name:Mariano Caballero ier, 01/21/2026 07:00:00 AM, [address], [address], [place], [place], [phone], Provider Name:Mariano Caballero ier, 01/28/2026 09:30:00 AM, [address], [address], [place], [place], [phone], Progress Notes * Zoey CHANCEOB:1950 ( 73 yo F)Acc No.[id number]:05/02/2024 Progress Notes Patient: Damaris Patel Provider: Tana Sloan MD :1950 A ge:73 Y S ex:Female Date:05/02/2024 Address:[address] [place], [place] [phone] Subjective: * Chief Complaints: * 3 month [...] true * Provider: Tana Sloan MD Date: 1 07/02/2023 Generated for Galileo fried/Dafne/Doniitting on: 0 02/02/2025 11:22 AM EDT History and Physical Notes * HPI (History of Present Illness) Category Sub-Category Detail Notes Category Not es Symptom(s) patient is a 73 yo female here for 3month follow up visit
--- OUTSIDE RECORDS SUMMARY | 2025-01-19 03:00 | XMS_ITS ---
Author Organization Mariano Sloan MD Address [address] [place], [place] [phone] Care Team Providers Care Circuit Designer Name Role Phone Mariano Sloan Primary Care Provider [phone] Results Component Value Reference Range Notes Complete Blood Count Auto Di ff Reviewed date:01/19/2025 04:27:51 PM Interpretation: Performing Lab:[facility], [address] [place] [phone] Notes/Report: White Blood Count 7.3 4.8-10.8 X10*3/uL [...] NRBC Abs Auto 0.000 0.0-0.012 X10*3/uL Comprehensive [place]. Panel Fa st Reviewed date:01/19/2025 04:25:59 PM Interpretation: Performing Lab:[facility], [address] [place] [phone] Notes/Report: Sodium 135 135-145 mmol/L Potassium 4.0 [...] Panel Reviewed date:01/19/2025 12:42:53 PM Interpretation: Performing Lab:[facility], [address] [place] [phone] Notes/Report: Triglycerides 117 <150 mg/dL Desirable Triglyceride: [...] t Reviewed date:01/19/2025 01:27:44 PM Interpretation: Performing Lab:[facility], [address] [place] [phone] Notes/Report: Urine, Clean Catch Color Urine Yellow Appearance Urine Cloudy PH 6.0 5.0-9.0 Glucose Urine UA Negative Negative mg/dL Urine Blood Trace Negative Specific [place] - Urine 1.015 1.005-1.025 Urine Protein 30 [...] Location Date Provider Diagnosis Mariano Sloan MD [address] [place] [address] [place] [phone] 01/19/2025 Mariano Sloan Hypercholesterolemia E78.00 ; Hypercalcemia E83.52 and Essential hypertension I10 Assessments Encounter Date Diagnosis (ICD Code) Assessment Notes Treatment Notes Treatment Clinical Notes Section Notes 01/19/2025 Hypercholesterolemia (ICD-10 - E78.00) 01/19/2025 Hypercalcemia (ICD-1 0 - E83.52) 01/19/2025 Essential hypertensi on (ICD-10 - I10) Plan Of Treatment Next Appt Details Provider Name:Mariano zuniga, 07/20/2025 08:00:00 AM, [address] [place] [address], [address], [place], [place], [phone], Provider Name:Mariano zuniga, 07/27/2025 10:00:00 AM, [address], [address], [place], [phone], Provider Name:Mariano Caballero ier, 01/21/2026 07:00:00 AM, [address], [address], [place], [place], [phone], Provider Name:Mariano Caballero ier, 01/28/2026 09:30:00 AM, [address], [address], [place], [place], [phone], Progress Notes * Zoey CHANCEOB:1950 ( 74 yo F)Acc No.[id number]:01/19/2025 Progress Note Patient: Damaris VERDUGO Provider: Tana Sloan MD :1950 A ge:74 Y S ex:Female Date:01/19/2025 Address:[address] [place], [place] [phone] Subjective: * Chief Complaints: * 1 . Yearly fasting labs. * Medical History: Objective: * Vitals: Assessment: * Assessment: 1. H ypercholesterolemia - E78.00 (Primary) 2 . H ypercalcemia - E83.52? 3. E ssential hypertension - I10 Plan: * Treatment: 2. H ypercalcemia L AB: Complete Blood Count Auto Diff (Collection Date & Time - 01/19/2025 07:00 AM) L AB: Comprehensive [place]. Panel Fast (Collection Date & Time - 01/19/2025 07:00 AM) L AB: Lipid Panel (Collection Date & Time - 01/19/2025 07:00 AM) L AB: UA ClnCatch+Micro w/rflx Cult (Collection Date & Time - 01/19/2025 07:00 AM) 3. E ssential hypertension L AB: Complete Blood Count Auto Diff (Collection Date & Time - 01/19/2025 07:00 AM) L AB: Comprehensive [place]. Panel Fast (Collection Date & Time - [...] 0 01/19/2025 Generated for Galileo fried/Dafne/Doniitting on: 0 02/02/2025 11:21 AM EDT
--- OUTSIDE RECORDS SUMMARY | 2025-01-22 08:34 | XMS_ITS ---
Author Organization Mariano Sloan MD Address [address] [place] [phone] Care Team Providers Care Pipe Stem Repairer Name Role Phone Mariano Sloan Primary Care Provider Medications Medication SIG (Take, Route, Frequency, Duration) Notes Start Date End Date Status Cipro 250 MG 1 tablet Orally ever y 12 hrs for 3 day(s) 01/22/2025 Active Encounters Encounter Location Date Provider Diagnosis Mariano Sloan MD [address] [place] [address] [place] [phone] 01/22/2025 Mariano Sloan Plan Of Treatment Medication Medication Name Sig Start Date Stop Date Notes Cipro 250 MG 1 tablet Orally every 12 hrs for 3 day(s) Next Appt Details Provider Name:Mariano zuniga, 07/20/2025 08:00:00 AM, [address] [place] [address], [address], [phone], Provider Name:Mariano zuniga, 07/27/2025 10:00:00 AM, [address] [place] [address], [address], [phone], Provider Name:Mariano zuniga, 01/21/2026 07:00:00 AM, [address] [place] [address], [phone], Provider Name:Mariano zuniga, 01/28/2026 09:30:00 AM, [address] [place] [address], [phone], Progress Notes * Zoey CHANCEOB:1950 ( 74 yo F)Acc No.[id number]:01/22/2025 Patient: Damaris VERDUGO :1950 A ge:74 Y S ex:Female Address:[address] [place] [address], [place] [address] * Refills Start Cipro Tablet, 250 MG, Orally, 6, 1 tablet, every 12 hrs, 3 day(s) * true * Date: Generated for Galileo fried/Dafne/Korismitting on: 0 02/02/2025 11:21 AM EDT
--- OUTSIDE RECORDS SUMMARY | 2025-01-25 04:00 | XMS_ITS ---
Author Organization Mariano Sloan MD Address [address] [place] [phone] Care Team Providers Care Corn Grower Name Role Phone Mariano Sloan Primary Care Provider [phone] Allergies No Known Allergies Results Component [...] Adelaida Eastman 0 01/25/2025 08:47:43 AM >info faxed Referral Priority Routine REASON FOR VISIT comp visit Medications Medication [...] kg/m2 01/25/2025 weight is down 3 pounds [facility] 05-02-24 Encounters Encounter Location Date Provider Diagnosis Mariano Sloan MD [address] [place] [address] [address] [place], [place] [phone] 01/25/2025 Mariano Sloan Hypercalcemia E83.52 ; Essential hypertension I10 ; Hypercholesterolemia E78.00 ; Colon cancer screening Z12.11 and Depression screening Z13.31 Assessments Encounter Date Diagnosis (ICD Code) Assessment Notes Treatment Notes Treatment Clinical Notes Section Notes 01/25/2025 Hypercalcemia (ICD-1 0 - E83.52) needs appt with endocrine [facility] [place] 01/25/2025 Essential hypertensi on (ICD-10 - [...] Notes Hypercalcemia needs appt with endo crine [facility] [place] Essential hypertension stable, will cont iue to monitor Hypercholesterolemia stable, will contin ue current regiment Colon cancer screening guaiac negative Depression screening negative screen Future Test Test Name Order Date Liver Panel 07/28/2025 Lipid Panel with Reflex 07/28/2025 Referrals Referral Date Details 01/25/2025 01/25/2025, Hypercal Bowen dempsey Next Appt Details Provider Name:Mariano zuniga, 07/20/2025 08:00:00 AM, [address] [place] [address], [address], [place], [place], [phone], Provider Name:Mariano zuniga, 07/27/2025 10:00:00 AM, [address] [place] [address], [address], [place], [place], [phone], Provider Name:Mariano zuniga, 01/21/2026 07:00:00 AM, [address] [place] [address], [address], [place], [place], [phone], Provider Name:Mariano Caballero ier, 01/28/2026 09:30:00 AM, [address], [address], [place], [place], [phone], Progress Notes * Zoey CHANCEOB:1950 ( 74 yo F)Acc No.[id number]:01/25/2025 Patient: Damaris VERDUGO Provider: Tana Sloan MD :1950 A ge:74 Y S ex:Female Date:01/25/2025 Address:[address] [place], [place] [address] Subjective: * Chief Complaints: * C omp [...] T obacco Use: T obacco Use/Smoking P craig is a n onsmoker, A dditional Findings: [...] Urine Blood Trace A Negative - Specific [place] - Urine 1.015 1.005-1.025 - Urine Protein [...] Urine 3-5 0-2 - /LPF L ab:Comprehensive [place]. Panel Fast (Order Date - 01/19/2025) (Collection [...] guaiac negative.? FEMALE GENITOURINARY: d one by home care provider. EXTREMITIES: n o clubbing, cyanosis, or edema. [...] Procedure Codes: 8 2270 TEST FOR BLOOD, [id number] Complex e/m visit add on * * Sign off status: Completed true * Provider: Tana Sloan MD Date: 0 01/25/2025 Generated for Phuci corky/Dafne/Doniitting on: 0 02/02/2025 11:22 AM EDT History [...] stool guaiac negative FEMALE GENITOURINARY: done by home care provider ORAL CAVITY: mucosa moist Consultation Request Notes Referral Date Referring Provider Referred Provider Not es 01/25/2025 Mariano Sloan, Bowen Garcia geovanny
--- OUTSIDE RECORDS SUMMARY | 2025-02-02 04:15 | XMS_ITS ---
Author Organization Mariano Sloan MD Address [address] [place] [phone] Care Team Providers Care Retail Cashier Associate Name Role Phone Mariano Sloan Primary Care Provider Results Component Value Reference Range Notes UA ClnCatch+Micro w/rflx Cul t (Not yet reviewed by provider) Interpretation: Performing Lab:[facility], [address] [place] [phone] Notes/Report: Urine, Clean Catch Color Urine Yellow Appearance Urine Clear PH 6.5 5.0-9.0 Glucose Urine UA Negative Negative mg/dL Urine Blood Negative Negative Specific [place] - Urine 1.015 1.005-1.025 Urine Protein Negative [...] Date Provider Diagnosis Mariano Sloan MD [address] [place] [phone] 02/02/2025 Mariano Sloan Aftercare Z51.89 Assessments Encounter Date Diagnosis (ICD Code) Assessment Notes Treatment Notes Treatment Clinical Notes Section Notes 02/02/2025 Aftercare (ICD-10 - Z51.89) Plan Of Treatment Pending Test Test Name Order Date UA ClnCatch+Micro w/rflx Cult 02/02/2025 Next Appt Details Provider Name:Mariano Caballero ier, 07/20/2025 08:00:00 AM, [address], [address], [place], [phone], Provider Name:Mariano Caballero ier, 07/27/2025 10:00:00 AM, [address], [address], [place], [phone], Provider Name:Mariano Caballero ier, 01/21/2026 07:00:00 AM, [address], [address], [place], [phone], Provider Name:Mariano Caballero ier, 01/28/2026 09:30:00 AM, [address], [address], [place], [phone], Progress Notes * Almaz CHANCEYolandaOB:1950 ( 74 yo F)Acc No.[id number]:02/02/2025 Progress Note Patient: Damaris VERDUGO Provider: Tana Sloan MD :1950 A ge:74 Y S ex:Female Date:02/02/2025 Address:[address] [place], [place] [phone] Subjective: * Chief Complaints: * 1 . U/A after care. * Medical History: Objective: * Vitals: Assessment: * Assessment: 1. A ftercare - Z51.89 Plan: * Treatment: * * The named appointment provid er may or may not be the originator of this progress note, and it is not deemed complete until electronically signed by the appointment provider. Sign off status: Pending * Provider: Tana Sloan MD Date: 02/02/2025 Generated for Galileo fried/Dafne/Doniitting on: 02/02/2025 11:22 AM EDT
[2025-02-02 11:10] LABS: Appearance Urine Clear; Glucose Urine UA Negative (Negative); PH 6.5 (5.0-9.0); Specific Gravity - Urine 1.015 (1.005-1.025); UMIC TRIGGER UACC YES
[2025-02-02 11:19] LABS: UACC Culture Trigger YES
--- OUTSIDE RECORDS SUMMARY | 2025-02-02 11:22 | XMS_ITS | Patient Health Record ---
Author Organization [facility] Address [address] [place] [address] Care Team Providers Care Box Hinge And Lock Attacher Name Role Phone Mariano Sloan MD Primary Care Provider Nelson Rocha Jr [phone] Allergies No Known Allergies Results Component Value Reference Range Notes Pathology Reviewed date:02/24/2024 10:50:34 AM Interpretation: Performing Lab:[facility], [address] [place] [phone] Notes/Report: Reason For Referral No Information Medications Medication SIG (Take, Route, Frequency, Duration) Notes Start Date End Date Status Rosuvastatin Calcium 20 MG Oral for 90 Active Calcium 500 MG 1 tablet with meals Orally Twice a day for 30 day(s) 01/31/2024 Active MiraLax (colon prep) 17 GM/SCOOP mixed with Gatorade or Crystal Light Orally begin at 5:00 p.m. the day before the procedure for 1 day 01/31/2024 Active Immunizations Vaccine Route Administration Date Status Comme nts Influenza Unknown 01/31/2024 Refused Social History Tobacco Use: Social History Observation Description Date Details (start date - stop date) Never Smoker NA - NA Tobacco Use/Smoking Question Answer Notes Patient is a nonsmoker Alcohol Screen Question Answer Notes Did you have a drink containing alcohol in the p ast year? No Points 0 Interpretation Negative Problems Problem Type SNOMED Code ICD Code Onset Dates Problem Status W/U Status Risk Notes Problem Gastritis (2498885) Gastritis (K29.70) Active confirmed Encounters Encounter Location Date Provider Diagnosis [facility] [address] [place] [phone] 02/11/2024 Nelson Delgado Jr Abnormal findings in stool R19.5 ; Gastritis K29.70 and Hiatal hernia K44.9 [facility] [address] [place] [address] 02/24/2024 Nelson Delgado Jr Assessments Encounter Date Diagnosis (ICD Code) Assessment Notes Treatment Notes Treatment Clinical Notes Section Notes 02/11/2024 Abnormal findings in stool (ICD-10 - R19.5) 02/11/2024 Gastritis (ICD-10 - K29.70) 02/11/2024 Hiatal hernia (ICD-10 - K44.9) Plan Of Treatment Future Test Test Name Order Date UPPER GI ENDOSCOPY 01/31/2024 COLONOSCOPY 01/31/2024 Insurance Providers Payer Name Payer Address Payer Phone Subscriber Number Group Number Insured Name Patient Relationship to Insured Coverage Start Date Coverage End Date MEDICARE OF [place] [address] [place] [address] [id number] ANAHI CHANCE Self - patient is the insured [employer] CLAIMS [address] [place] [address] [id number] ANAHI CHANCE Self - patient is the insured Medical (General) History Medical History History ICD Code Hyperlipidemia Hypercalcemia Hemoccult-positive stools Surgical History Surgery Date(Month/Year)
--- OUTSIDE RECORDS SUMMARY | 2025-02-02 11:22 | XMS_ITS | Patient Health Record ---
Author Organization Mariano Sloan MD Address [address] [place] [phone] Care Team Providers Care Print Color Operator Name Role Phone Mariano Sloan Primary Care Provider Allergies No Known Allergies Results Component Value Reference Range Notes MAMMOGRAM DIGITAL BILATERAL SCREEN Reviewed date:02/11/2024 01:19:22 PM Interpretation:Negative Performing Lab: Notes/Report: Negative colonoscopy Reviewed date:03/24/2024 10:54:45 AM Interpretation:repeat 10y Performing Lab: Notes/Report: repeat 10y Pathology Reviewed date:02/17/2024 06:50:33 PM Interpretation: Performing Lab:[facility], [address] [place] [phone] Notes/Report: --- Name: Damaris Cates Age/Sex: 73/F : 1950 Unit#: [id number] Attend Dr: Nelson Delgado MD Re02/11/24 Status : [facility] Location: [facility] Disch: --- SPEC : [id number] RECD : 02/11/24 STATUS: [facility] NUM: [id number] MIRTA: 02/11/24-[address]: Nelson Delgado MD [...] (signature on file) Cristina Connors 02/17/24 1036 --- Diagnosis A. Gastric antrum, biopsy: Gastric antral [...] EG junction bx's CONTINUED ON NEXT PAGE --- Name: Damaris Cates Age/Sex: 73/F : 1950 Unit#: [id number] Attend Dr: Nelson Delgado MD Re02/11/24 Status : [facility] Location: [facility] Disch: --- SPEC : [id number] RECD : 02/11/24-1206 STATUS: [facility] [place] NUM: [id number] MIRTA: 02/11/[address] [facility] [address]: Nelson Delgado MD ENTERED: 02/11/24- 20 SP TYPE: Surgical OTHR DR: Mariano Sloan MD ORDERED: HE Stain/6, Gross Micro L4/2, IHC, Special st. 2, H. pylori, AB/PAS Gross Description Received in two parts. Part A: Received in formalin labeled ?antral bx's? are 2 denney-pink irregular tissue fragments each measuring 0.25 cm in greatest dimension, submitted in [...] To: Mariano Sloan MD [facility] [address] [place] [id number] Nelson Delgado MD [facility] [address] [place] [phone] --- Signed (signature on file) Cristina Dory 02/14/24 1250 --- END OF REPORT Liver Panel Reviewed date:04/25/2024 08:03:12 PM Interpretation: Performing Lab:[address] [phone] Notes/Report: Bilirubin Total 0.8 0.0-1.0 mg/dL Bilirubin Direct 0.3 0.0-0.5 mg/dL Aspartate Amino Transferase 23 5-31 U/L Alanine Aminotransferase 18 0-31 U/L Total Protein 7.4 6.5-8.0 g/dL Albumin Level 4.5 3.5-5.0 g/dL Alkaline Phosphatase 85 39-117 U/L Calcium Reviewed date:04/25/2024 08:03:39 PM Interpretation: Performing Lab:[address] [phone] Notes/Report: Calcium 10.4 8.4-10.2 mg/dL Lipid Panel Reviewed date:04/25/2024 08:03:02 PM Interpretation: Performing Lab:[facility], [address] [place] [phone] Notes/Report: Triglycerides 85 <150 mg/dL Desirable Triglyceride: [...] low results in patients with liver disease. Urine Culture Reviewed date:01/22/2025 12:35:59 PM Interpretation: Performing Lab:[facility], [address] [place] [phone] Notes/Report: O:ESCCOL Escherichia coli Urine Culture Quant Urine Culture > 100,000 cfu/mL Ampicillin <=2 Cefazolin (Urine) <=1 Cefepime <=0.12 Ceftriaxone <=0.25 Ciprofloxacin <=0.06 Gentamicin <=1 Nitrofurantoin <=16 Trimethoprim/Sulfamethoxa zole <=20 Complete Blood Count Auto Di ff Reviewed date:01/19/2025 04:27:51 PM Interpretation: Performing Lab:[facility], [address] [place] [phone] Notes/Report: White Blood Count 7.3 4.8-10.8 X10*3/uL [...] NRBC Abs Auto 0.000 0.0-0.012 X10*3/uL Comprehensive [place]. Panel Fa st Reviewed date:01/19/2025 04:25:59 PM Interpretation: Performing Lab:[facility], [address] [place] [phone] Notes/Report: Sodium 135 135-145 mmol/L Potassium 4.0 [...] Panel Reviewed date:01/19/2025 12:42:53 PM Interpretation: Performing Lab:[facility], [address] [place] [phone] Notes/Report: Triglycerides 117 <150 mg/dL Desirable Triglyceride: [...] t Reviewed date:01/19/2025 01:27:44 PM Interpretation: Performing Lab:[facility], [address] [place] [phone] Notes/Report: Urine, Clean Catch Color Urine Yellow Appearance Urine Cloudy PH 6.0 5.0-9.0 Glucose Urine UA Negative Negative mg/dL Urine Blood Trace Negative Specific [place] - Urine 1.015 1.005-1.025 Urine Protein 30 (1+) Neg-Trace mg/dL Urine Ketones 15 Negative mg/dL Nitrite Urine Positive Negative Leukocyte Esterase Urine Large (3+) Negative RBC Urine 0-2 0-2 /HPF WBC Urine 21-50 0-5 /HPF Squamous Epithelial Cell Urine 3-5 0-2 /HPF Bacteria Urine 4+ None Seen Hyaline Casts Urine 3-5 0-2 /LPF Occult Blood, Stool, Guaiac Reviewed date:01/25/2025 11:28:53 [...] 08:47:43 AM >info faxed Referral Priority Routine Medications Medication SIG (Take, Route, Frequency, Duration) Notes Start Date End Date Status Rosuvastatin Calcium 20 MG 1 tablet Oral ly Once a day for 90 days 01/25/2024 Active Immunizations Vaccine Route Administration Date [...] Problem Hypercholesterem ia (272.0) Active confirmed Problem 60628436 Hypercalcemia (E83.52) Active confirme d Problem 18176232 Essential hypert ension (I10) Active confirmed Problem 67933254 Hypercholesterol emia (E78.00) Active confirmed Vital Signs Blood pressure diastolic 80 mm Hg 01/25/2025 tiffany ght is down 3 pounds since 05-02-24 Height 61 in 01/25/2025 weight is down 3 pounds since 05-02-24 Blood pressure systolic 132 mm Hg 01/25/2025 tiffanyg ht is down 3 pounds since 05-02-24 Weight 118 lbs 01/25/2025 weight is down 3 pounds since 05-02-24 BMI 22.29 kg/m2 01/25/2025 weight is down 3 pounds since 05-02-24 Encounters Encounter Location Date Provider Diagnosis Mariano Sloan MD [address] [place] [id number] 04/25/2024 Mariano Sloan Hypercalcemia E83.52 ; Encounter for immunization Z23 and Hypercholesterolemia E78.00 Mariano Sloan MD [address] [place] [id number] 01/19/2025 Mariano Sloan Hypercholesterolemia E78.00 ; Hypercalcemia E83.52 and Essential hypertension I10 Mariano Sloan MD [address] [place] [id number] 02/02/2025 Mariano Sloan Aftercare Z51.89 Mariano Sloan MD [address] [place] [id number] 05/02/2024 Marianoang Sloan Hypercalcemia E83.52 and Hypercholesterolemia E78.00 Mariano Sloan MD [address] [place] [id number] 01/25/2025 Mariano Sloan Hypercalcemia E83.52 ; Essential hypertension I10 ; Hypercholesterolemia E78.00 ; Colon cancer screening Z12.11 and Depression screening Z13.31 Mariano Sloan MD [address] [place] [id number] 01/22/2025 Mariano Sloan Assessments Encounter Date Diagnosis (ICD Code) Assessment Notes Treatment Notes Treatment Clinical Notes Section Notes 04/25/2024 Hypercalcemia (ICD-1 0 - E83.52) 04/25/2024 Encounter for immunization (ICD-10 - Z23) 01/19/2025 Hypercholesterolemia (ICD-10 - E78.00) 02/02/2025 Aftercare (ICD-10 - Z51.89) 05/02/2024 Hypercalcemia (ICD-1 0 - E83.52) just minimally up will just observe 05/02/2024 Hypercholesterolemia (ICD-10 - E78.00) doing great on meds, will continue current regiment 01/25/2025 Hypercalcemia (ICD-1 0 - E83.52) needs appt with endocrine [facility] 01/25/2025 Essential hypertensi on (ICD-10 - I10) stable, will contiue to monitor 04/25/2024 Hypercholesterolemia (ICD-10 - E78.00) 01/19/2025 Hypercalcemia (ICD-1 0 - E83.52) 01/25/2025 Hypercholesterolemia (ICD-10 - E78.00) stable, will continue current regiment 01/19/2025 Essential hypertensi on (ICD-10 - I10) 01/25/2025 Colon cancer screeni ng (ICD-10 - Z12.11) guaiac negative 01/25/2025 Depression screening (ICD-10 - Z13.31) negative screen Plan Of Treatment Pending Test Test Name Order Date MAMMOGRAM DIGITAL BILATERAL SCREEN 01/24 UA ClnCatch+Micro w/rflx Cult 02/02/2025 Next Appt Details Provider Name:Mariano Caballero ier, 07/20/2025 08:00:00 AM, [address] [place] [address], [address], [place], [place], [phone], Provider Name:Mariano Caballero ier, 07/27/2025 10:00:00 AM, [address] [place] [address], [address], [place], [place], [phone], Provider Name:Mariano Caballero ier, 01/21/2026 07:00:00 AM, [address] [place] [address], Suite [facility], [place], [place], [phone], Provider Name:Mariano Caballero veronikar, 01/28/2026 09:30:00 AM, [address] [place] [address], [address], [place], [place], [phone], Insurance Providers Payer Name Payer Address Payer Phone Subscriber Number Group Number Insured Name Patient Relationship to Insured Coverage Start Date Coverage End Date MED[employer] [address] [place] [address] [id number] Loan Damaris Self - patient is the insured [employer] [address] [place], [place] [phone] [id number] Loan Damaris Self - patient is the insured Medical (General) History Medical History History ICD Code due for colonoscopy 02/11/24 colonoscopy- repeat 10y
== END 2025-02-02 10:44 | disposition home or self-care (01) ==
LOC: HO.LNP 10:43
PROVIDERS: Visit Provider Internal Medicine
DX: Z13.89 Encounter for screening for other disorder (principal); Z51.89 Encounter for other specified aftercare
CPT/HCPCS: 81001; 87086

== ENCOUNTER 2025-02-07 09:34 | Outpatient (AMB) | payer MEDICARE, SELFPAY ==
--- OUTSIDE RECORDS SUMMARY | 2024-02-11 07:40 | XMS_ITS ---
Author Organization [facility] Address [address] [place] [phone] Care Team Providers Care Membership Administrator Name Role Phone Luther BENAVIDES, Mariano Primary Care Provider Nelson Rocha Jr [phone] REASON FOR VISIT abnormal findings in stool Problems Problem Type SNOMED Code ICD Code Onset Dates Problem Status W/U Status Risk Notes Problem Gastritis (7079090) Gastritis (K29.70) Active confirmed Encounters Encounter Location Date Provider Diagnosis [facility] Outpatient [address] [place] [phone] 02/11/2024 Nelson Delgado Jr Abnormal findings in [...] * ANAHI CHANCE HDOB:1950 (74 yo F)Acc No.[id number]:02/11/2024 EGD and COL/MAC Patient: ANAHI VERDUGO Provider: Xiomara Delgado MD :1950 A ge:73 Y S ex:Female Date:02/11/2024 Address:[address] [place], [place] [phone] Pcp:Mariano Sloan MD Subjective: * Chief Complaints: [...] DOCD, 0528F RCMND FLW-UP 10 YRS DOCD, [address] UPPER GI ENDOSCOPY, BIOPSY * * The named appointment provid er may or may not be the originator of this progress note, and it is not deemed complete until electronically signed by the appointment provider. Sign off status: Pending * Provider: Xiomara Delgado MD Date: 0 02/11/2024 Generated for Galileo fried/Dafne/Doniitting on: 0 02/07/2025 10:26 AM EDT
--- OUTSIDE RECORDS SUMMARY | 2024-05-02 06:00 | XMS_ITS ---
Author Organization Mariano Sloan MD Address [address] [place] [phone] Care Team Providers Care Tube Machine Operator Helper Name Role Phone Mariano Sloan Primary Care Provider [phone] REASON FOR VISIT 3 month Medications Medication [...] Location Date Provider Diagnosis Mariano Sloan MD [address] [place] [address] [place] [phone] 05/02/2024 Mariano Sloan Hypercalcemia E83.52 and Hypercholesterolemia [...] Details Provider Name:Mariano zuniga, 07/20/2025 08:00:00 AM, [address] [place] [address], Suite [facility], [place], [place], [phone], Provider Name:Mariano Caballero ier, 07/27/2025 10:00:00 AM, [address], [address], [place], [place], [phone], Provider Name:Mariano Caballero ier, 01/21/2026 07:00:00 AM, [address], [address], [place], [place], [phone], Provider Name:Mariano Caballero ier, 01/28/2026 09:30:00 AM, [address], [address], [place], [place], [phone], Progress Notes * Zoey CHANCEOB:1950 ( 73 yo F)Acc No.[id number]:05/02/2024 Progress Notes Patient: Damaris Patel Provider: Tana Sloan MD :1950 A ge:73 Y S ex:Female Date:05/02/2024 Address:[address] [place], [place] [phone] Subjective: * Chief Complaints: * 3 month [...] 07/02/2023 Generated for Galileo fried/Dafne/Doniitting on: 0 02/07/2025 10:27 AM EDT History and Physical Notes * HPI (History of Present Illness) Category Sub-Category Detail Notes Category Not es Symptom(s) patient is a 73 yo female here for 3month follow up visit
--- OUTSIDE RECORDS SUMMARY | 2025-01-19 03:00 | XMS_ITS ---
Author Organization Mariano Sloan MD Address [address] [place], [place] [id number] Care Team Providers Care Marine Service Station Attendant Name Role Phone Mariano Sloan Primary Care Provider Results Component Value Reference Range Notes Complete Blood Count Auto Di ff Reviewed date:01/19/2025 04:27:51 PM Interpretation: Performing Lab:[facility], [address] [place] [phone] Notes/Report: White Blood Count 7.3 4.8-10.8 X10*3/uL [...] NRBC Abs Auto 0.000 0.0-0.012 X10*3/uL Comprehensive [place]. Panel Fa st Reviewed date:01/19/2025 04:25:59 PM Interpretation: Performing Lab:[facility], [address] [place] [phone] Notes/Report: Sodium 135 135-145 mmol/L Potassium 4.0 [...] Panel Reviewed date:01/19/2025 12:42:53 PM Interpretation: Performing Lab:[facility], [address] [place] [phone] Notes/Report: Triglycerides 117 <150 mg/dL Desirable Triglyceride: [...] t Reviewed date:01/19/2025 01:27:44 PM Interpretation: Performing Lab:[facility], [address] [place] [phone] Notes/Report: Urine, Clean Catch Color Urine Yellow Appearance Urine Cloudy PH 6.0 5.0-9.0 Glucose Urine UA Negative Negative mg/dL Urine Blood Trace Negative Specific [place] - Urine 1.015 1.005-1.025 Urine Protein 30 [...] Location Date Provider Diagnosis Mariano Sloan MD [address] [place] [address] [place] [phone] 01/19/2025 Mariano Sloan Hypercholesterolemia E78.00 ; Hypercalcemia E83.52 and Essential hypertension I10 Assessments Encounter Date Diagnosis (ICD Code) Assessment Notes Treatment Notes Treatment Clinical Notes Section Notes 01/19/2025 Hypercholesterolemia (ICD-10 - E78.00) 01/19/2025 Hypercalcemia (ICD-1 0 - E83.52) 01/19/2025 Essential hypertensi on (ICD-10 - I10) Plan Of Treatment Next Appt Details Provider Name:Mariano zuniga, 07/20/2025 08:00:00 AM, [address] [place] [address], [address], [place], [place], [phone], Provider Name:Mariano zuniga, 07/27/2025 10:00:00 AM, [address], [address], [place], [phone], Provider Name:Mariano Caballero ier, 01/21/2026 07:00:00 AM, [address], [address], [place], [place], [phone], Provider Name:Mariano Caballero ier, 01/28/2026 09:30:00 AM, [address], [address], [place], [place], [phone], Progress Notes * Zoey CHANCEOB:1950 ( 74 yo F)Acc No.[id number]:01/19/2025 Progress Note Patient: Damaris VERDUGO Provider: Tana Sloan MD :1950 A ge:74 Y S ex:Female Date:01/19/2025 Address:[address] [place], [place] [phone] Subjective: * Chief Complaints: * 1 . Yearly fasting labs. * Medical History: Objective: * Vitals: Assessment: * Assessment: 1. H ypercholesterolemia - E78.00 (Primary) 2 . H ypercalcemia - E83.52? 3. E ssential hypertension - I10 Plan: * Treatment: 2. H ypercalcemia L AB: Complete Blood Count Auto Diff (Collection Date & Time - 01/19/2025 07:00 AM) L AB: Comprehensive [place]. Panel Fast (Collection Date & Time - 01/19/2025 07:00 AM) L AB: Lipid Panel (Collection Date & Time - 01/19/2025 07:00 AM) L AB: UA ClnCatch+Micro w/rflx Cult (Collection Date & Time - 01/19/2025 07:00 AM) 3. E ssential hypertension L AB: Complete Blood Count Auto Diff (Collection Date & Time - 01/19/2025 07:00 AM) L AB: Comprehensive [place]. Panel Fast (Collection Date & Time - [...] 01/19/2025 Generated for Galileo fried/Dafne/Doniitting on: 0 02/07/2025 10:26 AM EDT
--- OUTSIDE RECORDS SUMMARY | 2025-01-22 08:34 | XMS_ITS ---
Author Organization Mariano Sloan MD Address [address] [place] [phone] Care Team Providers Care Recreational Counselor Name Role Phone Mariano Sloan Primary Care Provider [phone] Medications Medication SIG (Take, Route, Frequency, Duration) Notes Start Date End Date Status Cipro 250 MG 1 tablet Orally ever y 12 hrs for 3 day(s) 01/22/2025 Active Encounters Encounter Location Date Provider Diagnosis Mariano Sloan MD [address] [place] [address] [address] [place] [phone] 01/22/2025 Mariano Sloan Plan Of Treatment Medication Medication Name Sig Start Date Stop Date Notes Cipro 250 MG 1 tablet Orally every 12 hrs for 3 day(s) Next Appt Details Provider Name:Mariano zuniga, 07/20/2025 08:00:00 AM, [address] [place] [address], [address], [phone], Provider Name:Mariano zuniga, 07/27/2025 10:00:00 AM, [address] [place] [address], [address], [phone], Provider Name:Mariano zuniga, 01/21/2026 07:00:00 AM, [address] [place] [address], [phone], Provider Name:Mariano zuniga, 01/28/2026 09:30:00 AM, [address] [place] [address], [phone], Progress Notes * Zoey CHANCEOB:1950 ( 74 yo F)Acc No.[id number]:01/22/2025 Patient: Damaris VERDUGO :1950 A ge:74 Y S ex:Female Address:[address] [place] [address], [place] [address] * Refills Start Cipro Tablet, 250 MG, Orally, 6, 1 tablet, every 12 hrs, 3 day(s) * true * Date: Generated for Galileo fried/Dafne/Korismitting on: 0 02/07/2025 10:27 AM EDT
--- OUTSIDE RECORDS SUMMARY | 2025-01-25 04:00 | XMS_ITS ---
Author Organization Mariano Sloan MD Address [address] [place] [phone] Care Team Providers Care Aircraft Pneudraulic Systems Mechanic Name Role Phone Mariano Sloan Primary Care Provider [phone] Allergies No Known Allergies Results Component Value Reference Range Notes Occult Blood, Stool, Guaiac Reviewed date:01/25/2025 11:28:53 AM Interpretation:Negative Performing Lab: Notes/Report: Negative Occult Blood, Stool, Guaiac Neg Reason For Referral Reason Hypercalemia Diagnosis 1 Hypercalcemia (E83.5 2) Referral Organization Mraiano Sloan MD Referring Provider First Name Mariano [...] kg/m2 01/25/2025 weight is down 3 pounds [facility] mayet 05-02-24 Encounters Encounter Location Date Provider Diagnosis Mariano Sloan MD [address] [place] [address] Drive [address] [place] [phone] 01/25/2025 Mariano Sloan Hypercalcemia E83.52 ; Essential hypertension I10 ; Hypercholesterolemia E78.00 ; Colon cancer screening Z12.11 and Depression screening Z13.31 Assessments Encounter Date Diagnosis (ICD Code) Assessment Notes Treatment Notes Treatment Clinical Notes Section Notes 01/25/2025 Hypercalcemia (ICD-1 0 - E83.52) needs appt with endocrine [place] 01/25/2025 Essential hypertensi on (ICD-10 - I10) [...] Notes Hypercalcemia needs appt with endo crine [place] Essential hypertension stable, will cont iue to monitor Hypercholesterolemia stable, will contin ue current regiment Colon cancer screening guaiac negative Depression screening negative screen Future Test Test Name Order Date Liver Panel 07/28/2025 Lipid Panel with Reflex 07/28/2025 Referrals Referral Date Details 01/25/2025 01/25/2025, Hypercal Bowen dempsey Next Appt Details Provider Name:Mariano zuniga, 07/20/2025 08:00:00 AM, [address] [place] [address], Suite [facility], [place], [place], [phone], Provider Name:Mariano zuniga, 07/27/2025 10:00:00 AM, [address] [place] [address], [address], [place], [place], [phone], Provider Name:Mariano zuniga, 01/21/2026 07:00:00 AM, [address], [address], [place], [place], [phone], Provider Name:Mariano Caballero ier, 01/28/2026 09:30:00 AM, [address], [address], [place], [place], [phone], Progress Notes * Zoey CHANCEOB:1950 ( 74 yo F)Acc No.[id number]:01/25/2025 Patient: Damaris VERDUGO Provider: Tana Sloan MD :1950 A ge:74 Y S ex:Female Date:01/25/2025 Address:[address] [place], [place] [address]Abby, [id number] Subjective: * Chief Complaints: * C omp [...] Urine Blood Trace A Negative - Specific [place] - Urine 1.015 1.005-1.025 - Urine Protein [...] Urine 3-5 0-2 - /LPF L ab:Comprehensive [place]. Panel Fast (Order Date - 01/19/2025) (Collection [...] guaiac negative.? FEMALE GENITOURINARY: d one by trade embalmer. EXTREMITIES: n o clubbing, cyanosis, or edema. [...] Procedure Codes: 8 2270 TEST FOR BLOOD, [id number] Complex e/m visit add on * * Sign off status: Completed true * Provider: Tana Sloan MD Date: 0 01/25/2025 Generated for Galileo fried/Dafne/Doniitting on: 0 02/07/2025 [...] stool guaiac negative FEMALE GENITOURINARY: done by trade embalmer ORAL CAVITY: mucosa moist Consultation Request Notes Referral Date Referring Provider Referred Provider Not es 01/25/2025 Mariano Sloan, Bowen small
--- OUTSIDE RECORDS SUMMARY | 2025-02-02 04:15 | XMS_ITS ---
Author Organization Mariano Sloan MD Address [address] [place] [phone] Care Team Providers Care Addiction Counselor Name Role Phone Mariano Sloan Primary Care Provider Results Component Value Reference Range Notes UA ClnCatch+Micro w/rflx Cul t Reviewed date:02/02/2025 06:45:28 PM Interpretation: Performing Lab:[facility], [address] [place] [phone] Notes/Report: Urine, Clean Catch Color Urine Yellow Appearance Urine Clear PH 6.5 5.0-9.0 Glucose Urine UA Negative Negative mg/dL Urine Blood Negative Negative Specific [place] - Urine 1.015 1.005-1.025 Urine Protein Negative [...] Date Provider Diagnosis Mariano Sloan MD [address] [place] [address] Drive [address] [place] [phone] 02/02/2025 Mariano Sloan Aftercare Z51.89 Assessments Encounter Date Diagnosis (ICD Code) Assessment Notes Treatment Notes Treatment Clinical Notes Section Notes 02/02/2025 Aftercare (ICD-10 - Z51.89) Plan Of Treatment Next Appt Details Provider Name:Mariano zuniga, 07/20/2025 08:00:00 AM, [address] [place] [address], Suite [facility], [place], [place], [phone], Provider Name:Mariano Caballero ier, 07/27/2025 10:00:00 AM, [address], [address], [place], [phone], Provider Name:Mariano Caballero ier, 01/21/2026 07:00:00 AM, [address], [address], [place], [phone], Provider Name:Mariano Caballero ier, 01/28/2026 09:30:00 AM, [address], [address], [place], [phone], Progress Notes * Zoey CHANCEOB:1950 ( 74 yo F)Acc No.[id number]:02/02/2025 Progress Note Patient: Damaris VERDUGO Provider: Tana Sloan MD :1950 A ge:74 Y S ex:Female Date:02/02/2025 Address:[address] [place], [place] [phone] Subjective: * Chief Complaints: * 1 . [...] Pending * Provider: Tana Sloan MD Date: 02/02/2025 Generated for Galileo fried/Dafne/Korismitting on: 0 02/07/2025 10:27 AM EDT
[2025-02-07 09:49] VITALS: BMI 21.9
--- NOTE | 2025-02-07 09:49 | A.OFFVIS_ITS ---
Vital Signs 02/07/25 09:49 Height 5 ft 1 in Weight 116 lb BMI 21.9 Intake Visit Reasons: INJ- LT knee Durolane injection Intake Note: Damaris is a 74 year old woman who presents today for a Durolane injection for her osteoarthritis of the left knee. Allergies No Known Allergies Allergy (Verified 02/07/25 09:49) Medication List - Last Reconciled 02/07/25 by Mickie Desir PA-C calcium 500 mg PO BID celecoxib (Celebrex) 200 mg PO BID 30 days rosuvastatin 20 mg PO DAILY HPI HPI INJ- LT knee Durolane injection: Details: 74-year-old female presents today for left knee durolane injection. [facility] Medical History Encounter for Hemoccult screening Hypercalcemia Hyperlipidemia Social History Are you a primary landcare officer to a significant other at home: No Do you presently have visiting nurse or other home services: No Patient Tobacco Use Status: Never used Tobacco Review of Systems Const All systems reviewed & are unremarkable except as noted in HPI and below Physical Exam Vital Signs: BMI result Body Mass Index 21.9 Const General: cooperative and no acute distress Orientation/consciousness: patient oriented x3 Resp Effort & Inspection: normal respiratory effort and able to speak in complete sentences Cardio Peripheral pulses: Peripheral pulses 2+ throughout Neuro General: patient oriented x3 Extrem Other: Left knee is normal to inspection. No erythema. No joint effusion. She has full range of motion with crepitus. Lateral retropatellar tenderness present. Calf supple and nontender neurovascularly intact. Office Procedures AMB Joint Injection/Aspiration Joint Injection/Aspiration Details: durolane Primary Site: left knee Prep: site was prepped using aseptic technique, ethochloride spray was applied and injection warnings given Injected: in the joint Approach Used: anterolateral Procedure: The patient tolerated the procedure well Coding 49341 - Glenohumeral/Tronchanteric Bursa/Intraarticular Procedure code (CPT) selection complete Assessment & Plan Assessment & Plan (1) Osteoarthritis of left knee: Code(s): M17.12 - Unilateral primary osteoarthritis, left knee Category: Medical Plan: Plan was to proceed with gel injection today. Left knee durolane Injection performed today which the patient tolerated well. She will rest ice and use anti-inflammatories as needed for the next several days and can increased activity as tolerated. Coding Level of Care Code Procedure Only Diagnoses Osteoarthritis of left knee M17.12 CPT Codes Coding - Joint 7: 12704 - Glenohumeral/Tronchanteric Bursa/Intraarticular ([id number])
--- OUTSIDE RECORDS SUMMARY | 2025-02-07 10:27 | XMS_ITS | Patient Health Record ---
Author Organization [facility] Address [address] [place] [address] Care Team Providers Care Caterpillar Mechanic Name Role Phone Mariano Sloan MD Primary Care Provider Nelson Rocha Jr [phone] Allergies No Known Allergies Results Component Value Reference Range Notes Pathology Reviewed date:02/24/2024 10:50:34 AM Interpretation: Performing Lab:[facility], [address] [place] [phone] Notes/Report: Reason For Referral No Information Medications [...] Status W/U Status Risk Notes Problem Gastritis (3952116) Gastritis (K29.70) Active confirmed Encounters Encounter Location Date Provider Diagnosis [facility] Outpatient [address] [place] [id number] 02/11/2024 Nelson Delgado Jr Abnormal findings in stool R19.5 ; Gastritis K29.70 and Hiatal hernia K44.9 [facility] [address] [place] [address] 02/24/2024 Nelson Delgado Jr Assessments Encounter Date [...] Date MEDICARE OF [place] [address] [place] [address] [id number] ANAHI CHANCE Self - patient is the insured [employer] ATT[employer] CLAIMS [address] [place] [address] [phone] [id number] ANAHI CHANCE Self - patient is the insured Medical (General) History Medical History History ICD Code Hyperlipidemia Hypercalcemia Hemoccult-positive stools Surgical History Surgery Date(Month/Year)
--- OUTSIDE RECORDS SUMMARY | 2025-02-07 10:27 | XMS_ITS | Patient Health Record ---
Author Organization Mariano Sloan MD Address [address] [place] [phone] Care Team Providers Care Photography Spotter Name Role Phone Mariano Sloan Primary Care Provider [phone] Allergies No Known Allergies Results Component Value Reference Range Notes colonoscopy Reviewed date:03/24/2024 10:54:45 AM Interpretation:repeat 10y Performing Lab: Notes/Report: repeat 10y Pathology Reviewed date:02/17/2024 06:50:33 PM Interpretation: Performing Lab:[facility], [address] [place] [phone] Notes/Report: --- Name: Damaris Cates Age/Sex: 73/F : 1950 [facility] [id number] Unit#: [id number] Attend Dr: Nelson Delgado MD Re02/11/24 Status : [facility] Location: [facility] Disch: --- SPEC : [id number] RECD : 02/11/24120 STATUS: [facility] NUM: [id number] MIRTA: 02/11/[address] [facility] [address]: Nelson Delgado MD ENTERED: 02/11/24 20 SP TYPE: Surgical OTHR DR: Mariano Sloan MD ORDERED: HE Stain/6, Gross Micro L4/2, IHC, Special st. 2, H. pylori, AB/PAS Addendum Addendum 1 Entered: 02/17/24 Immunostain for H. pylori on A is negative. Additional level with AB/PAS on B is negative for intestinal metaplasia. Controls stain appropriately. Addendum Signed (signature on file) Cristina [place] 02/17/24 1036 --- Diagnosis A. Gastric antrum, [...] Damaris Cates Age/Sex: 73/F : 1950 Unit#: [id number] Attend Dr: Nelson Delgado MD Re02/11/24 Status : [facility] Location: [facility] Disch: --- SPEC : [id number] RECD : 02/11/24-1207 STATUS: [place] NUM: [id number] MIRTA: 02/11/24-[address] [facility] [address]: Nelson Delgado MD ENTERED: 02/11/24-12 20 SP TYPE: Surgical OTHR DR: Mariano [...] To: Mariano Sloan MD [facility] [address] [place] [address] Nelson Delgado MD [facility] [address] [place] [address] [phone] --- Signed (signature on file) Cristina [place] 02/14/24 1250 --- END OF REPORT Liver Panel Reviewed date:04/25/2024 08:03:12 PM Interpretation: Performing Lab:[facility], [address] [place] [phone] Notes/Report: Bilirubin Total 0.8 0.0-1.0 mg/dL Bilirubin Direct 0.3 0.0-0.5 mg/dL Aspartate Amino Transferase 23 5-31 U/L Alanine Aminotransferase 18 0-31 U/L Total Protein 7.4 6.5-8.0 g/dL Albumin Level 4.5 3.5-5.0 g/dL Alkaline Phosphatase 85 39-117 U/L Calcium Reviewed date:04/25/2024 08:03:39 PM Interpretation: Performing Lab:[facility], [address] [place] [phone] Notes/Report: Calcium 10.4 8.4-10.2 mg/dL Lipid Panel Reviewed date:04/25/2024 08:03:02 PM Interpretation: Performing Lab:[facility], [address] [place] [phone] Notes/Report: Triglycerides 85 <150 mg/dL Desirable Triglyceride: [...] Culture Reviewed date:01/22/2025 12:35:59 PM Interpretation: Performing Lab:[address] [phone] Notes/Report: O:ESCCOL Escherichia coli Urine Culture Quant Urine Culture > 100,000 cfu/mL Ampicillin <=2 Cefazolin (Urine) <=1 Cefepime <=0.12 Ceftriaxone <=0.25 Ciprofloxacin <=0.06 Gentamicin <=1 Nitrofurantoin <=16 Trimethoprim/Sulfamethoxa zole <=20 Complete Blood Count Auto Di ff Reviewed date:01/19/2025 04:27:51 PM Interpretation: Performing Lab:[address] [phone] Notes/Report: White Blood Count 7.3 4.8-10.8 X10*3/uL [...] NRBC Abs Auto 0.000 0.0-0.012 X10*3/uL Comprehensive [place]. Panel Fa st Reviewed date:01/19/2025 04:25:59 PM Interpretation: Performing Lab:[facility], [address] [place] [phone] Notes/Report: Sodium 135 135-145 mmol/L Potassium 4.0 [...] Panel Reviewed date:01/19/2025 12:42:53 PM Interpretation: Performing Lab:[facility], [address] [place] [phone] Notes/Report: Triglycerides 117 <150 mg/dL Desirable Triglyceride: [...] t Reviewed date:01/19/2025 01:27:44 PM Interpretation: Performing Lab:[facility], [address] [place] [phone] Notes/Report: Urine, Clean Catch Color Urine Yellow Appearance Urine Cloudy PH 6.0 5.0-9.0 Glucose Urine UA Negative Negative mg/dL Urine Blood Trace Negative Specific [place] - Urine 1.015 1.005-1.025 Urine Protein 30 [...] Notes/Report: Negative Occult Blood, Stool, Guaiac Neg Urine Culture Reviewed date:02/03/2025 11:42:31 AM Interpretation: Performing Lab:[facility], [address] [place] [phone] Notes/Report: Urine Culture No growth. UA ClnCatch+Micro w/rflx Cul t Reviewed date:02/02/2025 06:45:28 PM Interpretation: Performing Lab:[facility], [address] [place] [phone] Notes/Report: Urine, Clean Catch Color Urine Yellow Appearance Urine Clear PH 6.5 5.0-9.0 Glucose Urine UA Negative Negative mg/dL Urine Blood Negative Negative Specific [place] - Urine 1.015 1.005-1.025 Urine Protein Negative Neg-Trace mg/dL Urine Ketones Negative Negative mg/dL Nitrite Urine Negative Negative Leukocyte Esterase Urine Small (1+) Negative RBC Urine 0-2 0-2 /HPF WBC Urine 0-5 0-5 /HPF Squamous Epithelial Cell Urine 3-5 0-2 /HPF Calcium Oxalate Crystals Urine Present Bacteria Urine None Seen None Seen Hyaline Casts Urine 0-2 0-2 /LPF Reason For Referral Reason Hypercalemia Diagnosis 1 [...] Referral Priority Routine Referral Appointment Date 02/08/2025 Medications Medication SIG (Take, Route, Frequency, Duration) [...] Problem Hypercholesterem ia (272.0) Active confirmed Problem 40486615 Hypercalcemia (E83.52) Active confirme d Problem 64204493 Essential hypert ension (I10) Active confirmed Problem 50827904 Hypercholesterol emia (E78.00) Active confirmed Vital Signs [...] Date Provider Diagnosis Mariano Sloan MD [address] [place] [id number] 04/25/2024 Mariano Sloan Hypercalcemia E83.52 ; Encounter for immunization Z23 and Hypercholesterolemia E78.00 Mariano Sloan MD [address] [place] [id number] 01/19/2025 Mariano Sloan Hypercholesterolemia E78.00 ; Hypercalcemia E83.52 and Essential hypertension I10 Mariano Sloan MD [address] [id number] 02/02/2025 Mariano Sloan Aftercare Z51.89 Mariano Sloan MD [address] [place] [address] [id number] 05/02/2024 Mariano Sloan Hypercalcemia E83.52 and Hypercholesterolemia E78.00 Mariano Sloan MD [address] [place] [id number] 01/25/2025 Mariano Sloan Hypercalcemia E83.52 ; Essential hypertension I10 ; Hypercholesterolemia E78.00 ; Colon cancer screening Z12.11 and Depression screening Z13.31 Mariano Sloan MD [address] [id number] 01/22/2025 Mariano Sloan Assessments Encounter Date Diagnosis [...] 0 - E83.52) needs appt with endocrine C 01/25/2025 Essential hypertensi on (ICD-10 - I10) [...] SCREEN 01/24 Next Appt Details Provider Name:Mariano zuniga, 07/20/2025 08:00:00 AM, [address] [place] [address], [address], [phone], Provider Name:Mariano zuniga, 07/27/2025 10:00:00 AM, [address] [place] [address], [address], [phone], Provider Name:Mariano zuniga, 01/21/2026 07:00:00 AM, [address] [place] [address], [phone], Provider Name:Mariano zuniga, 01/28/2026 09:30:00 AM, [address] [place] [address], [phone], Insurance Providers Payer Name Payer Address Payer Phone Subscriber Number Group Number Insured Name Patient Relationship to Insured Coverage Start Date Coverage End Date [employer] [address] [place] [address] [id number] Damaris Cates Self - patient is the insured [facility] [address] [place], [place] [id number] Damaris Cates Self - patient is the insured Medical (General) History Medical History History ICD Code due for colonoscopy 02/11/24 colonoscopy- repeat 10y
== END 2025-02-07 10:18 | disposition home or self-care (01) ==
LOC: HO.HOS 09:35
PROVIDERS: Visit Provider Physician Assistant
DX: M17.12 Unilateral primary osteoarthritis, left knee (principal)
CPT/HCPCS: 20610

== ENCOUNTER → 2025-02-07 09:34 | Outpatient (BNVA) | payer MEDICARE, SELFPAY | PROVIDERS: Visit Provider Physician Assistant | DX: M17.12 Unilateral primary osteoarthritis, left knee (principal) | CPT/HCPCS: 20610; J7318 ==

== ENCOUNTER → 2025-02-15 15:39 | Outpatient (BNVA) | payer MEDICARE, SELFPAY | PROVIDERS: Visit Provider Internal Medicine Endocrinology, Diabetes & Metabolism | DX: E83.52 Hypercalcemia (principal) | CPT/HCPCS: 99202 ==

== ENCOUNTER 2025-04-19 09:21 | Outpatient (AMB) | payer MEDICARE, SELFPAY ==
--- OUTSIDE RECORDS SUMMARY | 2023-10-21 05:38 | XMS_ITS ---
Author Organization Mariano Sloan MD Address [address] [place] [address] [place] [phone] Care Team Providers Care Trap Operator Name Role Phone Mariano Sloan Primary Care Provider REASON FOR VISIT ? new patient appt Encounters Encounter Location Date Provider Diagnosis Mariano Sloan MD [address] [place] [address] [place] [phone] 10/21/2023 Mariano Sloan Plan Of Treatment Next Appt Details Provider Name:Mariano zuniga, 07/20/2025 08:00:00 AM, [address] [place] [address], [address] [place] [address], [phone], Provider Name:Mariano zuniga, 07/27/2025 10:00:00 AM, [address] [place] [address], [address], [phone], Provider Name:Mariano zuniga, 01/21/2026 07:00:00 AM, [address] [place] [address], [address], [phone], Provider Name:Mariano bandar, 01/28/2026 09:30:00 AM, [address] [place] [address], [address], [phone], Progress Notes * Zoey CHANCEOB:1950 ( 73 yo F)Acc No.[id number]:10/21/2023 Patient: Damaris Patel :1950 A ge:73 Y S ex:Female Address:[address] [place] [address], [place] [address] * true * Date: Generated for Galileo fried/Dafne/Kristen on: 06/19/2024 10:41 AM EST
--- OUTSIDE RECORDS SUMMARY | 2023-11-30 06:00 | XMS_ITS ---
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 Farmworker [employer]oder [employer] Name Role Phone Mariano Sloan Primary Care Provider Allergies No Known Allergies Results Component Value Reference Range Notes Complete Blood Count Auto Di ff Reviewed date:11/30/2023 12:41:59 PM Interpretation: Performing Lab:[facility], [address] [place] [phone] Notes/Report: White Blood Count 6.5 4.8-10.8 X10*3/uL Red Blood Count 4.54 4.20-5.50 X10*6/uL Hemoglobin 13.7 12.0-16.0 g/dl Hematocrit 40.6 37.0-47.0 % Mean Corpuscular Volume 89.4 80.0-98.0 fL Mean Corpuscular Hemoglobin 30.2 27.0-33.0 pg Mean Corpuscular HGB Conc 33.7 31.0-35.0 g/dl Red Cell Distribution Width 13.2 11.0-16.0 % Platelet Count 356 160-400 X10*3/uL Mean Platelet Volume 9.6 9.4-12.3 fL Neutrophils Percent Auto 64.0 45-73 % Imm Gran Pct Auto 0.3 0.0-0.4 % Lymphocytes Percent Auto 27.5 20-40 % Monocytes Percent Auto 6.5 2-11 % Eosinophils Percent Auto 1.2 0-4 % Basophils Percent Auto 0.5 0-2 % NRBC Pct Auto 0.0 0.0-0.2 /100WBC Neutrophils Absolute Auto 4.2 2.0-8.3 x10*3/u L Imm Gran Abs Auto 0.02 0.00-0.03 X10*3/uL Lymphocytes Absolute Auto 1.8 1.2-4.9 X10*3/u L Monocytes Absolute Auto 0.4 0.1-1.2 X10*3/uL Eosinophils Absolute Auto 0.1 0.0-0.4 X10*3/u L Basophils Absolute Auto 0.0 0.0-0.2 X10*3/uL NRBC Abs Auto 0.000 0.0-0.012 X10*3/uL Urinalysis and Microscopic Reviewed date:11/30/2023 03:29:00 PM Interpretation: Performing Lab:[facility], [address] [place] [phone] Notes/Report: Color Urine Yellow Appearance Urine Clear PH 6.0 5.0-9.0 Glucose Urine UA Negative Negative mg/dL Urine Blood Negative Negative Specific [place] - Urine <= 1.005 1.005-1.025 Urine Protein Negative Neg-Trace mg/dL Urine Ketones Negative Negative mg/dL Nitrite Urine Negative Negative Leukocyte Esterase Urine Small (1+) Negative RBC Urine 0-2 0-2 /HPF WBC Urine 0-5 0-5 /HPF Squamous Epithelial Cell Urine 0-2 0-2 /HPF Bacteria Urine 2+ None Seen Hyaline Casts Urine 0-2 0-2 /LPF Comprehensive [place]. Panel Fa Reviewed date:11/30/2023 03:29:35 PM Interpretation: Performing Lab:[facility], [address] [place] [phone] Notes/Report: Sodium 137 135-145 mmol/L Potassium 4.0 3.3-5.1 mmol/L Chloride 104 96-108 mmol/L Carbon Dioxide 26 22-29 mmol/L Anion Gap 11 12-20 Blood Urea Nitrogen 14 9-16 mg/dL Creatinine 0.73 0.5-1.4 mg/dL Estimated Glomerular Filt Rate > 60 NOTE: For -[place] individuals, multiply the result by 1.210. Chronic Kidney Disease: Estimated GFR < 60 mL/min/1.73m2 Severe Kidney Disease: Estimated GFR < 15 mL/min/1.73m2 Glucose Fasting 101 60-99 mg/dL A fasting glucose from 100-125 mg/dl is considered impaired (pre-diabetes). Calcium 10.5 8.4-10.2 mg/dL Bilirubin Total 0.7 0.0-1.0 mg/dL Aspartate Amino Transferase 20 5-31 U/L Alanine Aminotransferase 13 0-31 U/L Total Protein 7.6 6.5-8.0 g/dL Albumin Level 4.5 3.5-5.0 g/dL Alkaline Phosphatase 90 39-117 U/L Lipid Panel Reviewed date:01/25/2024 12:04:04 PM Interpretation:see back 01-24-2025 Performing Lab:[facility], [address] [place] [phone] Notes/Report: Triglycerides 117 <150 mg/dL Desirable Triglyceride: less than 150 mg/dL Borderline High Triglyceride 150-199 mg/dL High Triglyceride: 200-499 mg/dL Very High Triglyceride: greater than or equal to 5OO mg/dL Cholesterol 313 <200 mg/dL Desirable Cholesterol: less than 200 mg/dL Borderline High Cholesterol: 200-239 mg/dL High Cholesterol: greater than 239 mg/dL LDL Cholesterol Calculated 214 <100 mg/dL Desirable LDL: less than 100 mg/dL Near Optimal/Above Optimal LDL: 110-129 mg/dL Borderline High LDL: 130-159 mg/dL High LDL: 160-189 mg/dL Very High LDL: greater than or equal to 190 mg/dL HDL Cholesterol 76 >40 mg/dL Desirable HDL: greater than 40 mg/dL Note: This HDL assay may give artificially low results in patients with liver disease. REASON FOR VISIT new patient est care, labs drawn Social History Tobacco Use: Social History Observation Description Date Details (start date - stop date) Never Smoker NA - NA Tobacco Use/Smoking Question Answer Notes Patient is a nonsmoker Additional Findings: Tobacco Non-User Cu rrent non-smoker, currently using no form of tobacco Alcohol Screen Question Answer Notes Did you have a drink containing alcohol in the p ast year? No Points 0 Interpretation Negative Problems Problem Type SNOMED Code ICD Code Onset Dates Problem Status W/U Status Risk Notes Problem 54406938 Hypercholesterol emia (E78.00) Active confirmed Problem 87821239 Essential hypert ension (I10) Active confirmed Vital Signs Blood pressure systolic 154 mm Hg 11/30/19 24 Blood pressure diastolic 66 mm Hg 024 Height 61 in 11/30/2023 Weight 120 lbs 11/30/2023 BMI 22.67 kg/m2 11/30/2023 Encounters Encounter Location Date Provider Diagnosis Mariano Sloan MD [address] [place] [phone] 11/30/2023 Mariano Sloan Hypercholesterolemia E78.00 and Essential hypertension I10 Assessments Encounter Date Diagnosis (ICD Code) Assessment Notes Treatment Notes Treatment Clinical Notes Section Notes 11/30/2023 Hypercholesterolemia (ICD-10 - E78.00) has history of elevated cholesterol and not taking any meds 11/30/2023 Essential hypertensi on (ICD-10 - I10) is borderline elevated. will recheck in few months before starting her on meds 11/30/2023 Other Total time spent on the date of the encounter is 45 minutes including both face to face time spent and time spent reviewing documentation, pertinent lab data, studies and counseling the patient. Plan Of Treatment Treatment Notes Assessment Notes Hypercholesterolemia has history of elev ated cholesterol and not taking any meds Essential hypertension is borderline philipp vated. will recheck in few months before starting her on meds Other Total time spent on the date of the encounter is 45 minutes including both face to face time spent and time spent reviewing documentation, pertinent lab data, studies and counseling the patient. Next Appt Details Follow Up: 2 Months, Reason: complete Provider Name:Mariano zuniga, 07/20/2025 08:00:00 AM, [address] [place] [address], [address] [place] [address], [phone], Provider Name:Mariano zuniga, 07/27/2025 10:00:00 AM, [address] [place] [address], [address], [phone], Provider Name:Mariano zuniga, 01/21/2026 07:00:00 AM, [address] [place] [address], [address], [phone], Provider Name:Mariano zuniga, 01/28/2026 09:30:00 AM, [address] [place] [address], [address], [phone], Progress Notes * Zoey CHANCEOB:1950 ( 74 yo F)Acc No.[id number]:11/30/2023 Progress Notes Patient: Damaris VERDUGO Provider: Tana Sloan MD :1950 A ge:73 Y S ex:Female Date:11/30/2023 Address:[id number] Subjective: * Chief Complaints: * 1 . New patient est care. 2. Labs drawn. * HPI: D epression Screening: PHQ-9 L ittle interest or pleasure in doing things N ot at all, F eeling down, depressed, or hopeless N ot at all, T rouble falling or staying asleep, or sleeping too much N ot at all, F eeling tired or having little energy N ot at all, P oor appetite or overeating N ot at all, F eeling bad about yourself or that you are a failure, or have let yourself or your family down N ot at all, T rouble concentrating on things, such as reading the newspaper or watching television N ot at all, M oving or speaking so slowly that other people could have noticed; or the opposite, being so fidgety or restless that you have been moving around a lot more than usual N ot at all, T houghts that you would be better off or of hurting yourself in some way N ot at all, T otal Score 0 . patient is a 73 yo female here to establish care, has not had a doctor for 5 or 6 years. no medical problems/ does walk and get exercise taking care of her grandchildren. C ommunication Needs: Communication Needs D oes the patient have a hearing impairment N o, D oes the patient have a vision impairment? Y es, I f yes, what is the vision impairment? G lasses, D oes the patient have a cognition impairment? N o. F all Risk: History H ave you had any falls with injury in the past year? N o, H ave you had two or more falls in the past year? N o. S RODOLFO Questions: SDOH Questions I n the past year have you been worried about losing housing? N o, I n the past year have you or any family members you live with been unable to get any of the following when it was really needed? Check all that apply: N one. * ROS: G eneral/Constitutional: Denies C hills. D enies F atigue. D enies F ever. D enies H eadache. E NT: Patient denies d ecreased sense of smell , any loss of taste , sore throat. D enies S ore throat. R espiratory: Denies C ough. D enies S hortness of breath at rest. D enies S hortness of breath with exertion. G astrointestinal: Denies D iarrhea. D enies N ausea. M usculoskeletal: Patient denies m uscle aches. P eripheral Vascular: Patient denies r ed and blue toes. * Medical History: * Family History: F ather: 69 yrs. M other: 75 yrs. 8 brother(s) , 4 sister(s) . 1 son(s) . . Father Alzheimer's Mother Cancer. * Social History: T obacco Use: T obacco Use/Smoking P atient is a n onsmoker, A dditional Findings: Tobacco Non-User C urrent non-smoker, currently using no form of tobacco. D rugs/Alcohol: A lcohol Screen D id you have a drink containing alcohol in the past year? N o, P oints 0 , I nterpretation N egative. M iscellaneous: C affeine: yes, frequency:, 1-2 cups per day. Children: yes. Exercise: yes, walking. Home smoke detector use: yes. Housing: living with relatives. Marital status: . Travel outside of the [place]: no. * Medications: N one * Allergies: N .K.D.A. Objective: * Vitals: H t: 61, Wt:120, BMI:22.67, BP:154/66, Repeat BP:150/70. * Examination: G eneral Examination: GENERAL APPEARANCE: alert, well hydrated, in no distress . HEAD: normocephalic. SKIN: good turgor. HEART: regular rate and rhythm, no murmurs, rubs, gallops. LUNGS: no wheezes, rales, rhonchi, good air movement, clear to auscultation bilaterally. ABDOMEN: soft, nontender, nondistended. ? Assessment: * Assessment: 1. H ypercholesterolemia - E78.00 (Primary) 2 . E ssential hypertension - I10 Plan: * Treatment: Notes: has history of elevated cholesterol and not taking any meds??2.?Essential hypertension? Notes: is borderline elevated. will recheck in few months before starting her on meds??3.?Others? Notes: Total time spent on the date of the encounter is 45 minutes including both face to face timespent and time spent reviewing documentation, pertinent lab data, studies and counseling the patient.?? * Procedure Codes: 3 6415 VENIPUNCT, ROUTINE* * Follow Up: 2 Months (Reason: complete) * * The named appointment provid er may or may not be the originator of this progress note, and it is not deemed complete until electronically signed by the appointment provider. Sign off status: Pending * Provider: Tana Sloan MD Date: 0 11/30/2023 Generated for Galileo fried/Dafne/Zeeransmitting on: 1 06/19/2024 10:40 AM EST History and Physical Notes * HPI (History of Present Illness) Category Sub-Category Detail Notes Category Not es Depression Screening PHQ-9 Little inte rest or pleasure in doing things: Not at all patient is a 73 yo female here to establish care, has not had a doctor for 5 or 6 years. no medical problems/ does walk and get exercise taking care of her grandchildren Feeling down, depressed, or hopeless: No t at all Trouble falling or staying asleep, or sl eeping too much: Not at all Feeling tired or having little energy: N ot at all Poor appetite or overeating: Not at all Feeling bad about yourself o r that you are a failure, or have let yourself or your family down: Not at all Trouble concentrating on thi ngs, such as reading the newspaper or watching television: Not at all Moving or speaking so slowly that other people could have noticed; or the opposite, being so fidgety or restless that you have been moving around a lot more than usual: Not at all Thoughts that you would be b panda off or of hurting yourself in some way: Not at all Total Score: 0 SDOH Questions SDOH Questions In the past year have you been worried about losing housing?: No In the past year have you or any family members you live with been unable to get any of the following when it was really needed? Check all that apply:: None Fall Risk History Have you had any falls with injury i n the past year?: No Have you had two or more falls in the year?: No Communication Needs Communication Needs Does the patient have a hearing impairment: No Does the patient have a vision impairmen t?: Yes If yes, what is the vision impairment?: Glasses Does the patient have a cognition impair ment?: No Examination Category Sub-Category Detail Notes Category Not es General Examination GENERAL APPEARANCE: alert, w ell hydrated, in no distress HEAD: normocephalic HEART: regular rate and rhy thm, no murmurs, rubs, gallops LUNGS: no wheezes, rales, r honchi, good air movement, clear to auscultation bilaterally ABDOMEN: soft, nontender, non distended SKIN: good turgor
--- OUTSIDE RECORDS SUMMARY | 2024-01-25 04:30 | XMS_ITS ---
Author Organization Mariano Sloan MD Address [address] [place], [place] [phone] Care Team Providers Care Licensing Officer Name Role Phone Mariano Sloan Primary Care Provider [phone] Allergies No Known Allergies Reason For Referral Reason Colon cancer screeni ng Diagnosis 1 Colon cancer screeni ng (Z12.11) Diagnosis 2 Guaiac positive stoo ls (R19.5) Referral Organization Mariano Sloan MD Referring Provider First Name Mariano Referring Provider Last Name Luther Referring Provider Speciality Internal M edicine Referred Provider Nelson Pisano Referred Provider Specialty Gastroentero logy General Notes Adelaida Eastman 03:29:24 PM EDT > info faxed , Adelaida Eastman 01/28/2024 09:30:51 AM EDT > called patient with info Referral Priority Routine Referral Appointment Date 01/31/2024 REASON FOR VISIT annual visit/ must see lipids Medications Medication SIG (Take, Route, Frequency, Duration) Notes Start Date End Date Status Rosuvastatin Calcium 20 MG 1 tablet Oral ly Once a day for 90 days 01/25/2024 Active Social History Tobacco Use: Social History Observation [...] Problem Status W/U Status Risk Notes Problem [id number] Hypercalcemia (E83.52) Active confirmed Vital Signs Blood pressure systolic 132 mm Hg 01/25/20 24 Blood pressure diastolic 70 mm Hg 024 Height 61 in 01/25/2024 Weight 118 lbs 01/25/2024 BMI 22.29 kg/m2 01/25/2024 weight is down 2 pounds [facility] [place] 11-30-23 Encounters Encounter Location Date Provider Diagnosis Mariano Sloan MD [address] [place], [place] [phone] 01/25/2024 Mariano Sloan Colon cancer screeni ng Z12.11 ; Hypercholesterolemia E78.00 ; Hypercalcemia E83.52 and Guaiac positive stools R19.5 Assessments Encounter Date Diagnosis (ICD Code) Assessment Notes Treatment Notes Treatment Clinical Notes Section Notes 01/25/2024 Colon cancer screeni ng (ICD-10 - Z12.11) make appt with dr ruffin or aliya, guaiac positive 01/25/2024 Hypercholesterolemia (ICD-10 - E78.00) discussed labs with patient, will initiate treatment with statin 01/25/2024 Hypercalcemia (ICD-1 0 - E83.52) 01/25/2024 Guaiac positive stoo ls (ICD-10 - R19.5) make urgent appt with dr augustin pisano 01/25/2024 Other mammogram order given to patient being done at [facility], patient verbalized understanding of medication and directions for use. Plan Of Treatment Medication Medication Name Sig Start Date Stop Date Notes Rosuvastatin Calcium 20 MG 1 tablet Oral ly Once a day for 90 days 01/25/2024 Treatment Notes Assessment Notes Colon cancer screening make appt with dr augustin pisano, guaiac positive Hypercholesterolemia discussed labs with patient, will initiate treatment with statin Guaiac positive stools make urgent appt with dr augustin pisano Other mammogram order give n to patient being done at [facility], patient verbalized understanding of medication and directions for use. Pending Test Test Name Order Date MAMMOGRAM DIGITAL BILATERAL SCREEN 01/24 Referrals Referral Date Details 01/25/2024 01/25/2024, Colon ca ncer screening , Nelson Pisano Next Appt Details Follow Up: 3 Months, Reason: Provider Name:Mariano zuniga, 07/20/2025 08:00:00 AM, [address], [address], [place], [place], [id number], Provider Name:Mariano Caballero ier, 07/27/2025 10:00:00 AM, [address], [address], [place], [phone], Provider Name:Mariano Caballero ier, 01/21/2026 07:00:00 AM, [address], [address], [place], [phone], Provider Name:Mariano Caballero ier, 01/28/2026 09:30:00 AM, [address], [address], [place], [phone], Progress Notes * ROBSONZoey BURROB:1950 ( 73 yo F)Acc No.[id number]:01/25/2024 Progress Notes Patient: Damaris Patel Provider: Tana Sloan MD :1950 A ge:73 Y S ex:Female Date:01/25/2024 Address:[address] [place], [place] [phone] Subjective: * Chief Complaints: * A nnual visit/ must see lipids * HPI: D epression Screening: PHQ-9 L [...] at all, T otal Score 0 . I nterpretation and Intervention D epression Screening Findings N egative, F ollow-Up for Depression : review of PHQ-9 found negative result, no follow-up needed. C ommunication Needs: Communication Needs D oes [...] needed? Check all that apply: N one. S ymptom(s): patient is a 73 yo female here for visit with review of recent labs and follow up of chronic issues. * ROS: G eneral/Constitutional: Patient denies f atigue , chills , fever , headache. ? E NT: Patient denies d ecreased sense of smell , any loss of taste , sore throat. R espiratory: Patient denies s hortness of breath at rest shortness of breath with exertion. C ardiovascular: Patient denies c hest pain with exertion chest pain at rest. G astrointestinal: Patient denies a bdominal pain change in bowel habits. G enitourinary: Patient complaining of s ome stress incontinence. ? M usculoskeletal: Patient denies m uscle aches. P eripheral Vascular: Patient denies r ed and blue toes. * Medical History: * Surgical History: * Hospitalization/Major Diagno stic Procedure: * Family History: F ather: 69 yrs. M other: 74 yrs. 8 brother(s) , 4 sister(s) . 1 son(s) . . Father Alzheimer's Mother Cancer, Denies mental health/substance abuse family history. * Social History: T obacco Use: T [...] Housing: living with relatives. Marital status: . no Travel outside of the [place]. * Medications: N one * Allergies: N .K.D.A.yes[Allergies Verified] Objective: * Vitals: H t: 61, Wt:118, BMI:22.29, BP:132/70 weight is down 2 pounds since 11-30-23. * P ast Orders: L ab:Complete Blood Count Auto Diff (Order Date - 11/30/2023) (Collection Date - 11/30/2023) Value Reference Range White Blood Count 6.5 4.8-10.8 - X10*3/uL Red Blood Count 4.54 4.20-5.50 - X10*6/uL Hemoglobin 13.7 12.0-16.0 - g/dl Hematocrit 40.6 37.0-47.0 - % Mean Corpuscular Volume 89.4 80.0-98.0 - fL Mean Corpuscular Hemoglobin 30.2 27.0-33.0 - pg Mean Corpuscular HGB Conc 33.7 31.0-35.0 - g/ dl Red Cell Distribution Width 13.2 11.0-16.0 - % Platelet Count 356 160-400 - X10*3/uL Mean Platelet Volume 9.6 9.4-12.3 - fL Neutrophils Percent Auto 64.0 45-73 - % Imm Gran Pct Auto 0.3 0.0-0.4 - % Lymphocytes Percent Auto 27.5 20-40 - % Monocytes Percent Auto 6.5 2-11 - % Eosinophils Percent Auto 1.2 0-4 - % Basophils Percent Auto 0.5 0-2 - % NRBC Pct Auto 0.0 0.0-0.2 - /100WBC Neutrophils Absolute Auto 4.2 2.0-8.3 - x10* 3/uL Imm Gran Abs Auto 0.02 0.00-0.03 - X10*3/uL Lymphocytes Absolute Auto 1.8 1.2-4.9 - X10* 3/uL Monocytes Absolute Auto 0.4 0.1-1.2 - X10*3/ uL Eosinophils Absolute Auto 0.1 0.0-0.4 - X10* 3/uL Basophils Absolute Auto 0.0 0.0-0.2 - X10*3/ uL NRBC Abs Auto 0.000 0.0-0.012 - X10*3/uL L ab:Urinalysis and Microscopic (Order Date - 11/30/2023) (Collection Date - 11/30/2023) Value Reference Range Color Urine Yellow - RBC Urine 0-2 0-2 - /HPF Appearance Urine Clear - PH 6.0 5.0-9.0 - Glucose Urine UA Negative Negative - mg/dL Urine Blood Negative Negative - Specific [place] - Urine <= 1.005 1.005-1.025 - Urine Protein Negative Neg-Trace - mg/dL Urine Ketones Negative Negative - mg/dL Nitrite Urine Negative Negative - Leukocyte Esterase Urine Small (1+) A Negative - WBC Urine 0-5 0-5 - /HPF Squamous Epithelial Cell Urine 0-2 0-2 - /HP F Bacteria Urine 2+ None Seen - Hyaline Casts Urine 0-2 0-2 - /LPF L ab:Comprehensive [place]. Panel Fast (Order Date - 11/30/2023) (Collection Date - 11/30/2023) Value Reference Range Sodium 137 135-145 - mmol/L Bilirubin Total 0.7 0.0-1.0 - mg/dL Aspartate Amino Transferase 20 5-31 - U/L Alanine Aminotransferase 13 0-31 - U/L Total Protein 7.6 6.5-8.0 - g/dL Albumin Level 4.5 3.5-5.0 - g/dL Alkaline Phosphatase 90 39-117 - U/L Potassium 4.0 3.3-5.1 - mmol/L Chloride 104 96-108 - mmol/L Carbon Dioxide 26 22-29 - mmol/L Anion Gap 11 L 12-20 - Blood Urea Nitrogen 14 9-16 - mg/dL Creatinine 0.73 0.5-1.4 - mg/dL Estimated Glomerular Filt Rate > 60 - Glucose Fasting 101 H 60-99 - mg/dL Calcium 10.5 H 8.4-10.2 - mg/dL * Examination: G eneral Examination: GENERAL APPEARANCE: alert, well hydrated, in no distress . HEAD: normocephalic. EYES: BOTH EYES, normal. EARS: BOTH EARS, auditory canal obscured with wax. THROAT: no erythema, no exudate, pharynx normal. NECK/THYROID: no carotid bruit, no cervical lymphadenopathy. SKIN: good turgor, no suspicious lesions. HEART: no murmurs, rubs, gallops, regular rate and rhythm. LUNGS: no wheezes, rales, rhonchi, good air movement, clear to auscultation bilaterally. BREASTS: firm breasts but no masses no axillary adenopathy. ABDOMEN: soft, nontender, nondistended, no rebound tenderness, no organomegaly . RECTAL EXAM: abnormal stool guiiac postitve. FEMALE GENITOURINARY: non-palpable ovaries. ? Assessment: * Assessment: 1. H ypercholesterolemia - E78.00 (Primary) 2 . C olon cancer screening - Z12.11 3 . H ypercalcemia - E83.52 4 . G uaiac positive stools - R19.5 Plan: * Treatment: 2. C olon cancer screening Notes: make appt with dr ruffin or aliya, guaiac positive. ? Referral To:[facility] Reason:Colon cancer screening 3. H ypercalcemia L AB: Occult Blood, Stool, Guaiac L AB: Calcium (Ordered for 04/26/2024) 4. G uaiac positive stools Notes: make urgent appt with dr ruffin or aliya. ? Referral To:[facility] Reason:Colon cancer screening 5. O thers Start Rosuvastatin Calcium Tablet, 20 MG, 1 tablet, Orally, Once a day, 90 days, 90 Tablet, Refills 3. Notes: mammogram order given to patient being done at [facility], patient verbalized understanding of medication and directions for use. * Imaging: * I maging: MAMMOGRAM DIGITAL BILATERAL SCREEN * Procedure Codes: 8 2270 TEST FOR BLOOD, FECES * Follow Up: 3 Months * * Sign off status: Completed true * Provider: Tana Sloan MD Date: 0 01/25/2024 Generated for Galileo fried/Dafne/eTransmitting on: 1 06/19/2024 10:40 AM EST History and Physical Notes * HPI (History of Present Illness) Category Sub-Category Detail Notes Category Not es Symptom(s) patient is a 73 yo female here for visit with review of recent labs and follow up of chronic issues. Depression Screening PHQ-9 Little inte rest or pleasure in doing things: Not at all Feeling down, depressed, or hopeless: No t [...] way: Not at all Total Score: 0 Interpretation and Intervention Depression Suzette sharp Findings: Negative Follow-Up for Depression: : review of PH Q-9 found negative result, no follow-up needed SDOH Questions SDOH Questions In the past [...] ell hydrated, in no distress HEAD: normocephalic EYES: BOTH EYES, normal EARS: BOTH EARS, auditory canal obscured with wax THROAT: no erythema, no exud ate, pharynx normal NECK/THYROID: no carotid bruit, no cervical lymphadenopathy HEART: no murmurs, rubs, ga llops, regular rate and rhythm LUNGS: no wheezes, rales, r honchi, good air movement, clear to auscultation bilaterally ABDOMEN: soft, nontender, non distended, no rebound tenderness, no organomegaly SKIN: good turgor, no susp icious lesions BREASTS: firm breasts but no masses no axillary adenopathy RECTAL EXAM: abnormal stool guiia c postitve FEMALE GENITOURINARY: non-palpable ovari es Consultation Request Notes Referral Date Referring Provider Referred Provider Not es 01/25/2024 Mariano Sloan Bernard Colon cancer screening
--- OUTSIDE RECORDS SUMMARY | 2024-02-11 06:40 | XMS_ITS ---
Author Organization [facility] Address [address] [place] [address] Care Team Providers Care Study Assistant Name Role Phone Luther BENAVIDES, Mariano Primary Care Provider Neslon Rocha Jr [phone] REASON FOR VISIT abnormal findings in stool Problems Problem Type SNOMED Code ICD Code Onset Dates Problem Status W/U Status Risk Notes Problem Gastritis (2502359) Gastritis (K29.70) Active confirmed Encounters Encounter Location Date Provider Diagnosis [facility] [place] [address] [place] [phone] 02/11/2024 Nelson Delgado Jr Abnormal findings in stool R19.5 ; Gastritis K29.70 and Hiatal hernia K44.9 Assessments Encounter Date Diagnosis (ICD Code) Assessment Notes Treatment Notes Treatment Clinical Notes Section Notes 02/11/2024 Abnormal findings in stool (ICD-10 - R19.5) 02/11/2024 Gastritis (ICD-10 - K29.70) 02/11/2024 Hiatal hernia (ICD-10 - K44.9) Plan Of Treatment No Information Progress Notes * ANAHI CHANCE HDOB:1950 (74 yo F)Acc No.[id number]:02/11/2024 EGD and COL/MAC Patient: ANAHI VERDUGO Provider: Xiomara Delgado MD :1950 A ge:73 Y S ex:Female Date:02/11/2024 Address:[address] [place], [place] [phone] Pcp:Mariano Sloan MD Subjective: * Chief Complaints: * 1 . Abnormal findings in stool. * Medical History: Objective: * Vitals: Assessment: * Assessment: 1. A bnormal findings in stool - R19.5 (Primary) 2 . G astritis - K29.70? 3. H iatal hernia - K44.9 Plan: * Treatment: * Procedure Codes: 4 5378 DIAGNOSTIC COLONOSCOPY, 0529F INTRVL 3+YRS PTS CLNSCP DOCD, 0528F RCMND FLW-UP 10 YRS DOCD, [address] UPPER GI ENDOSCOPY, BIOPSY * * The named appointment provid er may or may not be the originator of this progress note, and it is not deemed complete until electronically signed by the appointment provider. Sign off status: Pending * Provider: Xiomara Delgado MD Date: 0 02/11/2024 Generated for Galileo fried/Dafne/Doniitting on: 1 06/19/2024 10:39 AM EST
--- OUTSIDE RECORDS SUMMARY | 2024-04-25 03:00 | XMS_ITS ---
Author Organization Mariano Sloan MD Address [address] [place], [place] [id number] Care Team Providers Care Soil Conservation Aide Name Role Phone Mariano Sloan Primary Care Provider [phone] Results Component Value Reference Range Notes Liver Panel Reviewed date:04/25/2024 08:03:12 PM Interpretation: Performing Lab:[facility], [address] [place] [phone] Notes/Report: Bilirubin Total 0.8 0.0-1.0 mg/dL Bilirubin Direct 0.3 0.0-0.5 mg/dL Aspartate Amino Transferase 23 5-31 U/L Alanine Aminotransferase 18 0-31 U/L Total Protein 7.4 6.5-8.0 g/dL Albumin Level 4.5 3.5-5.0 g/dL Alkaline Phosphatase 85 39-117 U/L Calcium Reviewed date:04/25/2024 08:03:39 PM Interpretation: Performing Lab:[facility], [address] [place] [phone] Notes/Report: Calcium 10.4 8.4-10.2 mg/dL Lipid Panel Reviewed date:04/25/2024 08:03:02 PM Interpretation: Performing Lab:[facility], [address] [place] [phone] Notes/Report: Triglycerides 85 <150 mg/dL Desirable Triglyceride: less than 150 mg/dL Borderline High Triglyceride 150-199 mg/dL High Triglyceride: 200-499 mg/dL Very High Triglyceride: greater than or equal to 5OO mg/dL Cholesterol 203 <200 mg/dL Desirable Cholesterol: less than 200 mg/dL Borderline High Cholesterol: 200-239 mg/dL High Cholesterol: greater than 239 mg/dL LDL Cholesterol Calculated 107 <100 mg/dL Desirable LDL: less than 100 mg/dL Near Optimal/Above Optimal LDL: 110-129 mg/dL Borderline High LDL: 130-159 mg/dL High LDL: 160-189 mg/dL Very High LDL: greater than or equal to 190 mg/dL HDL Cholesterol 79 >40 mg/dL Desirable HDL: greater than 40 mg/dL Note: This HDL assay may give artificially low results in patients with liver disease. REASON FOR VISIT fasting,calcium, lipids. liver Immunizations Vaccine Route Administration Date Status Comme nts Influenza High Dose IM Intramuscular 04/25/2024 Administer ed Encounters Encounter Location Date Provider Diagnosis Mariano Sloan MD [address] [place] [phone] 04/25/2024 Mariano Sloan Hypercalcemia E83.52 ; Encounter for immunization Z23 and Hypercholesterolemia E78.00 Assessments Encounter Date Diagnosis (ICD Code) Assessment Notes Treatment Notes Treatment Clinical Notes Section Notes 04/25/2024 Hypercalcemia (ICD-1 0 - E83.52) 04/25/2024 Encounter for immunization (ICD-10 - Z23) 04/25/2024 Hypercholesterolemia (ICD-10 - E78.00) Plan Of Treatment Next Appt Details Provider Name:Mariano zuniga, 07/20/2025 08:00:00 AM, [address] [place] [address], [address], [phone], Provider Name:Mariano zuniga, 07/27/2025 10:00:00 AM, [address] [place] [address], [phone], Provider Name:Mariano zuniga, 01/21/2026 07:00:00 AM, [address] [place] [address], [phone], Provider Name:Mariano zuniga, 01/28/2026 09:30:00 AM, [address] [place] [address], [phone], Progress Notes * Zoey CHANCEOB:1950 ( 74 yo F)Acc No.[id number]:04/25/2024 Progress Note Patient: Damaris VERDUGO Provider: Tana Sloan MD :1950 A ge:73 Y S ex:Female Date:04/25/2024 Address:[address] [facility] Subjective: * Chief Complaints: * 1 . Fasting,calcium, lipids. liver. * Medical History: Objective: * Vitals: Assessment: * Assessment: 1. E ncounter for immunization - Z23 (Primary) 2 . H ypercalcemia - E83.52? 3. H ypercholesterolemia - E78.00 Plan: * Treatment: 2. H ypercholesterolemia L AB: Liver Panel (Collection Date & Time - 04/25/2024 08:00 AM) L AB: Lipid Panel (Collection Date & Time - 04/25/2024 08:00 AM) * Immunizations: Influenza High Dose : 0.5 mL (Dose No:1) (Route: Intramuscular) given by Kasey Moon , Office Staff on Left Deltoid * Procedure Codes: 9 0662 FLU VACC PRSV FREE INC ANTIG, G0008 ADMN FLU VAC NO FEE SCHED SAME DAY, 99233 VENIPUNCT, ROUTINE* * * The named appointment provid er may or may not be the originator of this progress note, and it is not deemed complete until electronically signed by the appointment provider. Sign off status: Pending * Provider: Tana Sloan MD Date: 06/25/2023 Generated for Galileo fried/Dafne/Doniitting on: 06/19/2024 10:39 AM EST
--- OUTSIDE RECORDS SUMMARY | 2024-05-02 05:00 | XMS_ITS ---
Author Organization Mariano Sloan MD Address [address] [place] [phone] Care Team Providers Care Medical Csr Name Role Phone Mariano Sloan Primary Care Provider REASON FOR VISIT 3 month Medications Medication SIG (Take, Route, Frequency, Duration) Notes Start Date End Date Status Rosuvastatin Calcium 20 MG 1 tablet Oral ly Once a day 01/25/2024 Active Vital Signs Blood pressure systolic 130 mm Hg 05/02/20 24 Blood pressure diastolic 76 mm Hg 024 Height 61 in 05/02/2024 Weight 121 lbs 05/02/2024 BMI 22.86 kg/m2 05/02/2024 Encounters Encounter Location Date Provider Diagnosis Mariano Sloan MD [address] [place] [address] [place] [phone] 05/02/2024 Mariano Sloan Hypercalcemia E83.52 and Hypercholesterolemia E78.00 Assessments Encounter Date Diagnosis (ICD Code) Assessment Notes Treatment Notes Treatment Clinical Notes Section Notes 05/02/2024 Hypercalcemia (ICD-1 0 - E83.52) just minimally up will just observe 05/02/2024 Hypercholesterolemia (ICD-10 - E78.00) doing great on meds, will continue current regiment Plan Of Treatment Medication Medication Name Sig Start Date Stop Date Notes Rosuvastatin Calcium 20 MG 1 tablet Orally Once a day 01/06 Treatment Notes Assessment Notes Hypercalcemia just minimally up wi ll just observe Hypercholesterolemia doing great on meds , will continue current regiment Next Appt Details Provider Name:Mariano zuniga, 07/20/2025 08:00:00 AM, [address] [place] [address], Suite [facility], [place], [place], [phone], Provider Name:Mariano Caballero ier, 07/27/2025 10:00:00 AM, [address], [address], [place], [place], [phone], Provider Name:Mariano Caballero ier, 01/21/2026 07:00:00 AM, [address], [address], [place], [place], [phone], Provider Name:Mariano Caballero ier, 01/28/2026 09:30:00 AM, [address], [address], [place], [place], [phone], Progress Notes * Zoey CHANCEOB:1950 ( 73 yo F)Acc No.[id number]:05/02/2024 Progress Notes Patient: Damaris Patel Provider: Tana Sloan MD :1950 A ge:73 Y S ex:Female Date:05/02/2024 Address:[address] [place], [place] [phone] Subjective: * Chief Complaints: * 3 month * HPI: S ymptom(s): patient is a 73 yo female here for 3month follow up visit. * ROS: G eneral/Constitutional: Patient denies c hills , fatigue , fever , headache. ? E NT: Patient denies d ecreased sense of smell , any loss of taste , sore throat. R espiratory: Patient denies s hortness of breath with exertion. ? C ardiovascular: Patient denies c hest pain with exertion , chest pain at rest. M usculoskeletal: Patient denies m uscle aches. P eripheral Vascular: Patient denies r ed and blue toes. * Medical History: * Surgical History: * Hospitalization/Major Diagno stic Procedure: * Medications: T akingRosuvastatin Calcium 20 MG Tablet 1 tablet Orally Once a dayMedication List reviewed and reconciled with the patientTaking Rosuvastatin Calcium 20 MG Tablet 1 tablet Orally Once a dayMedication List reviewed and reconciled with the patient Objective: * Vitals: H t: 61, Wt:121, BMI:22.86, BP:130/76, Wt-k.88. * P ast Orders: L ab:Liver Panel (Order Date - 04/25/2024) (Collection Date - 04/25/2024) Value Reference Range Bilirubin Total 0.8 0.0-1.0 - mg/dL Bilirubin Direct 0.3 0.0-0.5 - mg/dL Aspartate Amino Transferase 23 5-31 - U/L Alanine Aminotransferase 18 0-31 - U/L Total Protein 7.4 6.5-8.0 - g/dL Albumin Level 4.5 3.5-5.0 - g/dL Alkaline Phosphatase 85 39-117 - U/L L ab:Calcium (Order Date - 04/25/2024) (Collection Date - 04/25/2024) Value Reference Range Calcium 10.4 H 8.4-10.2 - mg/dL L ab:Lipid Panel (Order Date - 04/25/2024) (Collection Date - 04/25/2024) Value Reference Range Triglycerides 85 <150 - mg/dL Cholesterol 203 H <200 - mg/dL LDL Cholesterol Calculated 107 H <100 - mg/dL HDL Cholesterol 79 >40 - mg/dL Assessment: * Assessment: 1. H ypercalcemia - E83.52 (Primary) 2 . H ypercholesterolemia - E78.00 Plan: * Treatment: 2. H ypercholesterolemia Continue Rosuvastatin Calcium Tablet, 20 MG, 1 tablet, Orally, Once a day. Notes: doing great on meds, will continue current regiment * Procedure Codes: * * Sign off status: Completed true * Provider: Tana Sloan MD Date: 07/02/2023 Generated for Galileo fried/Dafne/Doniitting on: 06/19/2024 10:40 AM EST History and Physical Notes * HPI (History of Present Illness) Category Sub-Category Detail Notes Category Not es Symptom(s) patient is a 73 yo female here for 3month follow up visit
--- OUTSIDE RECORDS SUMMARY | 2025-01-19 02:00 | XMS_ITS ---
Author Organization Mariano Sloan MD Address [address] [place], [place] [phone] Care Team Providers Care Technologist Infectious Disease Name Role Phone Mariano Sloan Primary Care Provider Results Component Value Reference Range Notes Complete Blood Count Auto Di ff Reviewed date:01/19/2025 04:27:51 PM Interpretation: Performing Lab:[facility], [address] [place] [phone] Notes/Report: White Blood Count 7.3 4.8-10.8 X10*3/uL Red Blood Count 4.75 4.20-5.50 X10*6/uL Hemoglobin 14.5 12.0-16.0 g/dl Hematocrit 42.4 37.0-47.0 % Mean Corpuscular Volume 89.3 80.0-98.0 fL Mean Corpuscular Hemoglobin 30.5 27.0-33.0 pg Mean Corpuscular HGB Conc 34.2 31.0-35.0 g/dl Red Cell Distribution Width 12.8 11.0-16.0 % Platelet Count 336 160-400 X10*3/uL Mean Platelet Volume 9.8 9.4-12.3 fL Neutrophils Percent Auto 53.9 45-73 % Imm Gran Pct Auto 0.3 0.0-0.4 % Lymphocytes Percent Auto 37.2 20-40 % Monocytes Percent Auto 7.1 2-11 % Eosinophils Percent Auto 1.2 0-4 % Basophils Percent Auto 0.3 0-2 % NRBC Pct Auto 0.0 0.0-0.2 /100WBC Neutrophils Absolute Auto 3.9 2.0-8.3 x10*3/u L Imm Gran Abs Auto 0.02 0.00-0.03 X10*3/uL Lymphocytes Absolute Auto 2.7 1.2-4.9 X10*3/u L Monocytes Absolute Auto 0.5 0.1-1.2 X10*3/uL Eosinophils Absolute Auto 0.1 0.0-0.4 X10*3/u L Basophils Absolute Auto 0.0 0.0-0.2 X10*3/uL NRBC Abs Auto 0.000 0.0-0.012 X10*3/uL Comprehensive [place]. Panel Fa st Reviewed date:01/19/2025 04:25:59 PM Interpretation: Performing Lab:[facility], [address] [place] [phone] Notes/Report: Sodium 135 135-145 mmol/L Potassium 4.0 3.3-5.1 mmol/L Chloride 99 96-108 mmol/L Carbon Dioxide 26 22-29 mmol/L Anion Gap 14 12-20 Blood Urea Nitrogen 13 9-16 mg/dL Creatinine 0.88 0.5-1.4 mg/dL Estimated Glomerular Filt Rate > 60 Chronic Kidney Disease: Estimated GFR < 60 mL/min/1.73m2 Severe Kidney Disease: Estimated GFR < 15 mL/min/1.73m2 Glucose Fasting 102 60-99 mg/dL A fasting glucose from 100-125 mg/dl is considered impaired (pre-diabetes). Calcium 10.6 8.4-10.2 mg/dL Bilirubin Total 0.9 0.0-1.0 mg/dL Aspartate Amino Transferase 23 5-31 U/L Alanine Aminotransferase 16 0-31 U/L Total Protein 7.6 6.5-8.0 g/dL Albumin Level 4.9 3.5-5.0 g/dL Alkaline Phosphatase 95 39-117 U/L Lipid Panel Reviewed date:01/19/2025 12:42:53 PM Interpretation: Performing Lab:[facility], [address] [place] [phone] Notes/Report: Triglycerides 117 <150 mg/dL Desirable Triglyceride: less than 150 mg/dL Borderline High Triglyceride 150-199 mg/dL High Triglyceride: 200-499 mg/dL Very High Triglyceride: greater than or equal to 5OO mg/dL Cholesterol 201 <200 mg/dL Desirable Cholesterol: less than 200 mg/dL Borderline High Cholesterol: 200-239 mg/dL High Cholesterol: greater than 239 mg/dL LDL Cholesterol Calculated 108 <100 mg/dL Desirable LDL: less than 100 mg/dL Near Optimal/Above Optimal LDL: 110-129 mg/dL Borderline High LDL: 130-159 mg/dL High LDL: 160-189 mg/dL Very High LDL: greater than or equal to 190 mg/dL HDL Cholesterol 70 >40 mg/dL Desirable HDL: greater than 40 mg/dL Note: This HDL assay may give artificially low results in patients with liver disease. UA ClnCatch+Micro w/rflx Cul t Reviewed date:01/19/2025 01:27:44 PM Interpretation: Performing Lab:[facility], [address] [place] [phone] Notes/Report: Urine, Clean Catch Color Urine Yellow Appearance Urine Cloudy PH 6.0 5.0-9.0 Glucose Urine UA Negative Negative mg/dL Urine Blood Trace Negative Specific [place] - Urine 1.015 1.005-1.025 Urine Protein 30 (1+) Neg-Trace mg/dL Urine Ketones 15 Negative mg/dL Nitrite Urine Positive Negative Leukocyte Esterase Urine Large (3+) Negative RBC Urine 0-2 0-2 /HPF WBC Urine 21-50 0-5 /HPF Squamous Epithelial Cell Urine 3-5 0-2 /HPF Bacteria Urine 4+ None Seen Hyaline Casts Urine 3-5 0-2 /LPF REASON FOR VISIT yearly fasting labs Encounters Encounter Location Date Provider Diagnosis Mariano Sloan MD [address] [place] [address] [place] [phone] 01/19/2025 Mariano Sloan Hypercholesterolemia E78.00 ; Hypercalcemia E83.52 and Essential hypertension I10 Assessments Encounter Date Diagnosis (ICD Code) Assessment Notes Treatment Notes Treatment Clinical Notes Section Notes 01/19/2025 Hypercholesterolemia (ICD-10 - E78.00) 01/19/2025 Hypercalcemia (ICD-1 0 - E83.52) 01/19/2025 Essential hypertensi on (ICD-10 - I10) Plan Of Treatment Next Appt Details Provider Name:Mariano zuniga, 07/20/2025 08:00:00 AM, [address] [place] [address], [address], [place], [place], [phone], Provider Name:Mariano zuniga, 07/27/2025 10:00:00 AM, [address], [address], [place], [phone], Provider Name:Mariano Caballero ier, 01/21/2026 07:00:00 AM, [address], [address], [place], [place], [phone], Provider Name:Mariano Caballero ier, 01/28/2026 09:30:00 AM, [address], [address], [place], [place], [phone], Progress Notes * Zoey CHANCEOB:1950 ( 74 yo F)Acc No.[id number]:01/19/2025 Progress Note Patient: Damaris VERDUGO Provider: Tana Sloan MD :1950 A ge:74 Y S ex:Female Date:01/19/2025 Address:[address] [place], [place] [phone] Subjective: * Chief Complaints: * 1 . Yearly fasting labs. * Medical History: Objective: * Vitals: Assessment: * Assessment: 1. H ypercholesterolemia - E78.00 (Primary) 2 . H ypercalcemia - E83.52? 3. E ssential hypertension - I10 Plan: * Treatment: 2. H ypercalcemia L AB: Complete Blood Count Auto Diff (Collection Date & Time - 01/19/2025 07:00 AM) L AB: Comprehensive [place]. Panel Fast (Collection Date & Time - 01/19/2025 07:00 AM) L AB: Lipid Panel (Collection Date & Time - 01/19/2025 07:00 AM) L AB: UA ClnCatch+Micro w/rflx Cult (Collection Date & Time - 01/19/2025 07:00 AM) 3. E ssential hypertension L AB: Complete Blood Count Auto Diff (Collection Date & Time - 01/19/2025 07:00 AM) L AB: Comprehensive [place]. Panel Fast (Collection Date & Time - 01/19/2025 07:00 AM) L AB: Lipid Panel (Collection Date & Time - 01/19/2025 07:00 AM) L AB: UA ClnCatch+Micro w/rflx Cult (Collection Date & Time - 01/19/2025 07:00 AM) * Procedure Codes: 3 6415 VENIPUNCT, ROUTINE* * * The named appointment provid er may or may not be the originator of this progress note, and it is not deemed complete until electronically signed by the appointment provider. Sign off status: Pending * Provider: Tana Sloan MD Date: 0 01/19/2025 Generated for Galileo fried/Dafne/Doniitting on: 1 06/19/2024 10:40 AM EST
--- OUTSIDE RECORDS SUMMARY | 2025-01-22 07:34 | XMS_ITS ---
Author Organization Mariano Sloan MD Address [address] [place] [phone] Care Team Providers Care Administrative Court Justice Name Role Phone Mariano Sloan Primary Care Provider Medications Medication SIG (Take, Route, Frequency, Duration) Notes Start Date End Date Status Cipro 250 MG 1 tablet Orally ever y 12 hrs for 3 day(s) 01/22/2025 Active Encounters Encounter Location Date Provider Diagnosis Mariano Sloan MD [address] [place] [address] [address] [place] [phone] 01/22/2025 Mariano Sloan Plan Of Treatment Medication Medication Name Sig Start Date Stop Date Notes Cipro 250 MG 1 tablet Orally every 12 hrs for 3 day(s) Next Appt Details Provider Name:Mariano zuniga, 07/20/2025 08:00:00 AM, [address] [place] [address], [address], [phone], Provider Name:Mariano zuniga, 07/27/2025 10:00:00 AM, [address] [place] [address], [address], [phone], Provider Name:Mariano zuniga, 01/21/2026 07:00:00 AM, [address] [place] [address], [phone], Provider Name:Mariano zuniga, 01/28/2026 09:30:00 AM, [address] [place] [address], [phone], Progress Notes * Zoey CHANCEOB:1950 ( 74 yo F)Acc No.[id number]:01/22/2025 Patient: Damaris VERDUGO :1950 A ge:74 Y S ex:Female Address:[address] [place] [address], [place] [address] * Refills Start Cipro Tablet, 250 MG, Orally, 6, 1 tablet, every 12 hrs, 3 day(s) * true * Date: Generated for Galileo fried/Dafne/eTalexsmitting on: 06/19/2024 10:40 AM EST
--- OUTSIDE RECORDS SUMMARY | 2025-01-25 03:00 | XMS_ITS ---
Author Organization Mariano Sloan MD Address [address] [place] [phone] Care Team Providers Care Escrow Secretary Name Role Phone Mariano Sloan Primary Care Provider Allergies No Known Allergies Results Component Value Reference Range Notes Occult Blood, Stool, Guaiac Reviewed date:01/25/2025 11:28:53 AM Interpretation:Negative Performing Lab: Notes/Report: Negative Occult Blood, Stool, Guaiac Neg Reason For Referral Reason Hypercalemia Diagnosis 1 Hypercalcemia (E83.5 2) Referral Organization Mariano Sloan MD Referring Provider First Name Mariano Referring Provider Last Name Luther Referring Provider Speciality Internal M edicine Referred Provider Bowen Sanchez Referred Provider Specialty Endocrinolog y General Notes Adelaida Eastman 0 01/25/2025 08:47:43 AM >info faxedJaren Annette 02/02/2025 12:00:50 PM >was told patient is aware of appt Referral Priority Routine Referral Appointment Date 02/08/2025 REASON FOR VISIT comp visit Medications Medication SIG (Take, Route, Frequency, Duration) [...] ast year? No Points 0 Interpretation Negative Vital Signs Blood pressure systolic 132 mm Hg 01/26/20 25 Blood pressure diastolic 80 mm Hg 025 Height 61 in 01/25/2025 Weight 118 lbs 01/25/2025 BMI 22.29 kg/m2 01/25/2025 weight is down 3 pounds [facility] mayte 05-02-24 Encounters Encounter Location Date Provider Diagnosis Mariano Sloan MD [address] [place] [address] Drive [address] [place] [phone] 01/25/2025 Mariano Sloan Hypercalcemia E83.52 ; Essential hypertension I10 ; Hypercholesterolemia E78.00 ; Colon cancer screening Z12.11 and Depression screening Z13.31 Assessments Encounter Date Diagnosis (ICD Code) Assessment Notes Treatment Notes Treatment Clinical Notes Section Notes 01/25/2025 Hypercalcemia (ICD-1 0 - E83.52) [place] app[place] with [place] [facility] [place] Essential hypertensi on (ICD-10 - I10) stable, will contiue to monitor 01/25/2025 Hypercholesterolemia (ICD-10 - E78.00) stable, will continue current regiment 01/25/2025 Colon cancer screeni ng (ICD-10 - Z12.11) guaiac negative 01/25/2025 Depression screening (ICD-10 - Z13.31) negative screen Plan Of Treatment Medication Medication Name Sig Start Date Stop Date Notes Rosuvastatin Calcium 20 MG 1 tablet Oral ly Once a day for 90 days 01/25/2024 Treatment Notes Assessment Notes Hypercalcemia needs appt with endo cr[place] [facility]ential hypertension stable, will cont iue to monitor Hypercholesterolemia stable, will contin ue current regiment Colon cancer screening guaiac negative Depression screening negative screen Future Test Test Name Order Date Liver Panel 07/28/2025 Lipid Panel with Reflex 07/28/2025 Referrals Referral Date Details 01/25/2025 01/25/2025, Hypercal Bowen dempsey Next Appt Details Provider Name:Mariano zuniga, 07/20/2025 08:00:00 AM, [address] [place] [address], Suite [facility], [place], [place], [phone], Provider Name:Mariano zuniga, 07/27/2025 10:00:00 AM, [address] [place] [address], [address], [place], [place], [phone], Provider Name:Mariano zuniga, 01/21/2026 07:00:00 AM, [address], [address], [place], [place], [phone], Provider Name:Mariano Caballero ier, 01/28/2026 09:30:00 AM, [address], [address], [place], [place], [phone], Progress Notes * Zoey CHANCEOB:1950 ( 74 yo F)Acc No.[id number]:01/25/2025 Patient: Damaris VERDUGO Provider: Tana Sloan MD :1950 A ge:74 Y S ex:Female Date:01/25/2025 Address:[address] [place], [place] [address]Abby, [id number] Subjective: * Chief Complaints: * C omp visit * HPI: D epression Screening: PHQ-9 L [...] at all, T otal Score 0 . C ommunication Needs: Communication Needs D oes [...] N one. S ymptom(s): patient is a 74 yo female here for review of recent labs and follow up of chronic issues. * ROS: G eneral/Constitutional: Change in appetite d enies. C hills d enies. F ever d enies. O phthalmologic: Blurred vision d enies. D ischarge d enies. P ain d enies. E NT: Decreased hearing d enies. S ore throat d enies.?Swollen glands d enies. E ndocrine: Cold intolerance d enies. E xcessive thirst d enies. H eat intolerance d enies. W eight loss d enies. R espiratory: Cough d enies. S hortness of breath at rest d enies. S hortness of breath with exertion d enies. W heezing d enies. C ardiovascular: Chest pain at rest d enies. C hest pain with exertion?denies. I rregular heartbeat d enies. S hortness of breath d enies. ? G astrointestinal: Abdominal pain d enies. C hange in bowel habits d enies. D iarrhea d enies. N ausea d enies. R ectal bleeding d enies. V omiting d enies . G enitourinary: Blood in urine d enies. D ifficulty urinating d enies. F requent urination d enies. U rinary incontinence D enies. M usculoskeletal: Painful joints d enies. W eakness d enies. ? S kin: Dry skin d enies. I tching d enies. D enies?Mole(s), changes in moles, new moles or any lesions of concern. D enies P hotosensitivity. R veronika d enies. N eurologic: Dizziness d enies. F ainting d enies. H eadache?denies. * Medical History: * Surgical History: * [...] Housing: living with relatives. Marital status: . * Medications: T akingRosuvastatin Calcium 20 MG Tablet 1 tablet Orally Once a day Taking Rosuvastatin Calcium 20 MG Tablet 1 tablet Orally Once a day DiscontinuedCipro 250 MG Tablet 1 tablet Orally every 12 hrs Medication List reviewed and reconciled with the patientDiscontinued Cipro 250 MG Tablet 1 tablet Orally every 12 hrs Medication List reviewed and reconciled with the patient * Allergies: N .K.D.A.yes[Allergies Verified] Objective: * Vitals: H t: 61, Wt: 118, BMI:22.29, BP:132/80, Wt-k.52. weight is down 3 pounds since 05-02-24. * P ast Orders: L ab:Lipid Panel (Order Date - 01/19/2025) (Collection Date & Time - 01/19/2025 07:00 AM) Value Reference Range Triglycerides 117 <150 - mg/dL Cholesterol 201 H <200 - mg/dL LDL Cholesterol Calculated 108 H <100 - mg/dL HDL Cholesterol 70 >40 - mg/dL L ab:UA ClnCatch+Micro w/rflx Cult (Order Date - 01/19/2025) (Collection Date & Time - 01/19/2025 07:00 AM) Value Reference Range Color Urine Yellow - Appearance Urine Cloudy - PH 6.0 5.0-9.0 - Glucose Urine UA Negative Negative - mg/dL Urine Blood Trace A Negative - Specific [place] - Urine 1.015 1.005-1.025 - Urine Protein 30 (1+) A Neg-Trace - mg/dL Urine Ketones 15 Negative - mg/dL Nitrite Urine Positive A Negative - Leukocyte Esterase Urine Large (3+) A Negative - RBC Urine 0-2 0-2 - /HPF WBC Urine 21-50 0-5 - /HPF Squamous Epithelial Cell Urine 3-5 0-2 - /HP F Bacteria Urine 4+ None Seen - Hyaline Casts Urine 3-5 0-2 - /LPF L ab:Comprehensive [place]. Panel Fast (Order Date - 01/19/2025) (Collection Date & Time - 01/19/2025 07:00 AM) Value Reference Range Sodium 135 135-145 - mmol/L Bilirubin Total 0.9 0.0-1.0 - mg/dL Aspartate Amino Transferase 23 5-31 - U/L Alanine Aminotransferase 16 0-31 - U/L Total Protein 7.6 6.5-8.0 - g/dL Albumin Level 4.9 3.5-5.0 - g/dL Alkaline Phosphatase 95 39-117 - U/L Potassium 4.0 3.3-5.1 - mmol/L Chloride 99 96-108 - mmol/L Carbon Dioxide 26 22-29 - mmol/L Anion Gap 14 12-20 - Blood Urea Nitrogen 13 9-16 - mg/dL Creatinine 0.88 0.5-1.4 - mg/dL Estimated Glomerular Filt Rate > 60 - Glucose Fasting 102 H 60-99 - mg/dL Calcium 10.6 H 8.4-10.2 - mg/dL L ab:Complete Blood Count Auto Diff (Order Date - 01/19/2025) (Collection Date & Time - 01/19/2025 07:00 AM) Value Reference Range White Blood Count 7.3 4.8-10.8 - X10*3/uL Red Blood Count 4.75 4.20-5.50 - X10*6/uL Hemoglobin 14.5 12.0-16.0 - g/dl Hematocrit 42.4 37.0-47.0 - % Mean Corpuscular Volume 89.3 80.0-98.0 - fL Mean Corpuscular Hemoglobin 30.5 27.0-33.0 - pg Mean Corpuscular HGB Conc 34.2 31.0-35.0 - g/ dl Red Cell Distribution Width 12.8 11.0-16.0 - % Platelet Count 336 160-400 - X10*3/uL Mean Platelet Volume 9.8 9.4-12.3 - fL Neutrophils Percent Auto 53.9 45-73 - % Imm Gran Pct Auto 0.3 0.0-0.4 - % Lymphocytes Percent Auto 37.2 20-40 - % Monocytes Percent Auto 7.1 2-11 - % Eosinophils Percent Auto 1.2 0-4 - % Basophils Percent Auto 0.3 0-2 - % NRBC Pct Auto 0.0 0.0-0.2 - /100WBC Neutrophils Absolute Auto 3.9 2.0-8.3 - x10* 3/uL Imm Gran Abs Auto 0.02 0.00-0.03 - X10*3/uL Lymphocytes Absolute Auto 2.7 1.2-4.9 - X10* 3/uL Monocytes Absolute Auto 0.5 0.1-1.2 - X10*3/ uL Eosinophils Absolute Auto 0.1 0.0-0.4 - X10* 3/uL Basophils Absolute Auto 0.0 0.0-0.2 - X10*3/ uL NRBC Abs Auto 0.000 0.0-0.012 - X10*3/uL L ab:Urine Culture (Order Date - 01/19/2025) (Collection Date & Time - 01/19/2025) Value Reference Range O:ESCCOL Escherichia coli - Urine Culture > 100,000 cfu/mL - Ampicillin <=2 S - Ceftriaxone <=0.25 S - Gentamicin <=1 S - Nitrofurantoin <=16 S - Trimethoprim/Sulfamethoxazole <=20 S - Cefepime <=0.12 S - Ciprofloxacin <=0.06 S - Cefazolin (Urine) <=1 S - * Examination: G eneral Examination: GENERAL APPEARANCE: w ell developed, well nourished, in no acute distress. HEAD: n ormocephalic, atraumatic. EYES: p upils equal, round, reactive to light and accommodation, sclera non-icteric. EARS: n ormal. ORAL CAVITY: m ucosa moist. THROAT: c lear. NECK/THYROID: n vianey supple, full range of motion, no cervical lymphadenopathy, no bruits. SKIN: w arm and dry, no suspicious lesions. HEART: r egular rate and rhythm, S1, S2 normal, no murmurs.? LUNGS: c lear to auscultation bilaterally. BREASTS: N o mass, no lump. ABDOMEN: s oft, nontender, nondistended, bowel sounds present, normal, no organomegaly , no masses palpable. RECTAL EXAM: n o masses palpable, stool guaiac negative.? FEMALE GENITOURINARY: d one by ward maid. EXTREMITIES: n o clubbing, cyanosis, or edema. NEUROLOGIC: n onfocal, motor strength normal upper and lower extremities, sensory exam intact. Assessment: * Assessment: 1. H ypercalcemia - E83.52 (Primary) 2 . E ssential hypertension - I10 3 . H ypercholesterolemia - E78.00 4 . C olon cancer screening - Z12.11 5 . D epression screening - Z13.31 Plan: * Treatment: 2. E ssential hypertension Notes: stable, will contiue to monitor 3. H ypercholesterolemia Refill Rosuvastatin Calcium Tablet, 20 MG, 1 tablet, Orally, Once a day, 90 days, 90 Tablet, Refills 3. Notes: stable, will continue current regiment 4. C olon cancer screening L AB: Occult Blood, Stool, Guaiac (Collection Date & Time - 01/25/2025) N egative Value Reference Range O ccult Blood, Stool, Guaiac Neg Notes: guaiac negative??5.?Depression screening? Notes: negative screen?? * Procedure Codes: 8 2270 TEST FOR BLOOD, [id number] Complex e/m visit add on * * Sign off status: Completed true * Provider: Tana Sloan MD Date: 0 01/25/2025 Generated for Galileo fried/Dafne/eTjtitting on: 06/19/2024 10:41 AM EST History and Physical Notes * HPI (History of Present Illness) Category Sub-Category Detail Notes Category Not es Symptom(s) patient is a 74 yo female here for review of recent labs and follow up of chronic issues Depression Screening PHQ-9 Little inte rest or [...] had two or more falls in the st year?: No Communication Needs Communication Needs Does the patient have a hearing impairment: No Does the patient have a vision impairmen t?: Yes If yes, what is the vision impairment?: Glasses Does the patient have a cognition impair ment?: No Examination Category Sub-Category Detail Notes Category Not es General Examination GENERAL APPEARANCE: well dev eloped, well nourished, in no acute distress HEAD: normocephalic, atrau matic EYES: pupils equal, round, reactive to light and accommodation, sclera non-icteric EARS: normal THROAT: clear NECK/THYROID: neck supple, full ra nge of motion, no cervical lymphadenopathy, no bruits HEART: regular rate and rhy thm, S1, S2 normal, no murmurs LUNGS: clear to auscultatio n bilaterally ABDOMEN: soft, nontender, non distended, bowel sounds present, normal, no organomegaly , no masses palpable NEUROLOGIC: nonfocal, motor stre ngth normal upper and lower extremities, sensory exam intact SKIN: warm and dry, no izabella picious lesions EXTREMITIES: no clubbing, cyanosi s, or edema BREASTS: No mass, no lump RECTAL EXAM: no masses palpable, stool guaiac negative FEMALE GENITOURINARY: done by ward maid ORAL CAVITY: mucosa moist Consultation Request Notes Referral Date Referring Provider Referred Provider Not es 01/25/2025 Mariano Sloan, Bowen Garcia geovanny
--- OUTSIDE RECORDS SUMMARY | 2025-02-02 03:15 | XMS_ITS ---
Author Organization Mariano Sloan MD Address [address] [place] [phone] Care Team Providers Care Patrol Judge Name Role Phone Mariano Sloan Primary Care Provider [phone] Results Component Value Reference Range Notes UA ClnCatch+Micro w/rflx Cul t Reviewed date:02/02/2025 06:45:28 PM Interpretation: Performing Lab:[facility], [address] [place] [phone] Notes/Report: Urine, Clean Catch Color Urine Yellow Appearance Urine Clear PH 6.5 5.0-9.0 Glucose Urine UA Negative Negative mg/dL Urine Blood Negative Negative Specific [place] - Urine 1.015 1.005-1.025 Urine Protein Negative Neg-Trace mg/dL Urine Ketones Negative Negative mg/dL Nitrite Urine Negative Negative Leukocyte Esterase Urine Small (1+) Negative RBC Urine 0-2 0-2 /HPF WBC Urine 0-5 0-5 /HPF Squamous Epithelial Cell Urine 3-5 0-2 /HPF Calcium Oxalate Crystals Urine Present Bacteria Urine None Seen None Seen Hyaline Casts Urine 0-2 0-2 /LPF REASON FOR VISIT U/A after care Encounters Encounter Location Date Provider Diagnosis Mariano Sloan MD [address] [place] [phone] 02/02/2025 Mariano Sloan Aftercare Z51.89 Assessments Encounter Date Diagnosis (ICD Code) Assessment Notes Treatment Notes Treatment Clinical Notes Section Notes 02/02/2025 Aftercare (ICD-10 - Z51.89) Plan Of Treatment Next Appt Details Provider Name:Mariano zuniga, 07/20/2025 08:00:00 AM, [address] [place] [address], Suite [facility], [place], [place], [phone], Provider Name:Mariano Caballero ier, 07/27/2025 10:00:00 AM, [address], [address], [place], [phone], Provider Name:Mariano Caballero ier, 01/21/2026 07:00:00 AM, [address], [address], [place], [phone], Provider Name:Mariano Caballero ier, 01/28/2026 09:30:00 AM, [address], [address], [place], [phone], Progress Notes * Zoey CHANCEOB:1950 ( 74 yo F)Acc No.[id number]:02/02/2025 Progress Note Patient: Damaris VERDUGO Provider: Tana Sloan MD :1950 A ge:74 Y S ex:Female Date:02/02/2025 Address:[address] [place], [place] [phone] Subjective: * Chief Complaints: * 1 . U/A after care. * Medical History: Objective: * Vitals: Assessment: * Assessment: 1. A ftercare - Z51.89 (Primary) Plan: * Treatment: * * The named appointment provid er may or may not be the originator of this progress note, and it is not deemed complete until electronically signed by the appointment provider. Sign off status: Pending * Provider: Tana Sloan MD Date: 0 02/02/2025 Generated for Galileo fried/Dafne/Korismitting on: 06/19/2024 10:41 AM EST
[2025-04-19 09:23] VITALS: BP 128/76; PULSE 79; O2SAT 97; BMI 22.4
--- NOTE | 2025-04-19 09:23 | A.OFFVIS_ITS ---
Vital Signs 04/19/25 09:23 Height 5 ft 1 in Weight 118 lb 6.212 oz BMI 22.4 BP 128/76 Blood Pressure Location Lt brachial Position Sitting Pulse 79 Pulse Source Pulse Oximeter Pulse Oximetry (%) 97 Oxygen Delivery Method Room Air Intake Visit Reasons: f/u hypercalcemia Intake Note: Patient present today for Hypercalcemia follow up.? Beef Killer Required: No Accompanied by: Self / Same As Patient Allergies No Known Allergies Allergy (Verified 04/19/25 09:26) HPI Comments Details: 74 YO F who is seen in consultation at the request of PCP for Hypercalcemia. First noted to have high calcium just dxed . Currently using Calcium supplement 500 mg QD. Takes 500 IU of Vitamin D daily upt to few days ago . Not Currently using HCTZ. Kidney stones: No Osteoporosis: No History of [place] use: No Biotin use: No Family history of high calcium or kidney stones: No Renal imaging: [] DXA: Labs: Ca=10.6 . Was supposed to repeat labs at [facility] done were normal [facility] Medical History Encounter for Hemoccult screening Hypercalcemia Hyperlipidemia Surgical History Hx of section Family History Mother Lung cancer Father AD (Alzheimer's disease) Social History Are you a primary customer care professional to a significant other at home: No Do you presently have visiting nurse or other home services: No Patient Tobacco Use Status: Never used Tobacco Physical Exam Vital Signs: BMI result Body Mass Index 22.4 Assessment & Plan Assessment & Plan (1) Hypercalcemia: Code(s): E83.52 - Hypercalcemia Plan: 74-year-old white female found to have mildly elevated calcium levels. Repeat labs at [facility] reference lab with normal No need for any further endocrine workup or follow up at this point. The patient returned to the care of her primary care provider Coding Level of Care Code Est Pt Level 3 (11668) Diagnoses Hypercalcemia E83.52
--- OUTSIDE RECORDS SUMMARY | 2025-04-19 10:41 | XMS_ITS | Patient Health Record ---
Author Organization Mariano Sloan MD Address [address] [place], [place] [phone] Care Team Providers Care Document Review Specialist Name Role Phone Mariano Sloan Primary Care Provider Allergies No Known Allergies Results Component Value Reference Range Notes Liver Panel Reviewed date:04/25/2024 08:03:12 PM Interpretation: Performing Lab:[facility], [address] [place] [phone] Notes/Report: Bilirubin Total 0.8 0.0-1.0 mg/dL Bilirubin Direct 0.3 0.0-0.5 mg/dL Aspartate Amino Transferase 23 5-31 U/L Alanine Aminotransferase 18 0-31 U/L Total Protein 7.4 6.5-8.0 g/dL Albumin Level 4.5 3.5-5.0 g/dL Alkaline Phosphatase 85 39-117 U/L Calcium Reviewed date:04/25/2024 08:03:39 PM Interpretation: Performing Lab:[facility], [address] [place] [phone] Notes/Report: Calcium 10.4 8.4-10.2 mg/dL Lipid Panel Reviewed date:04/25/2024 08:03:02 PM Interpretation: Performing Lab:[facility], [address] [place] [phone] Notes/Report: Triglycerides 85 <150 mg/dL Desirable Triglyceride: [...] Culture Reviewed date:01/22/2025 12:35:59 PM Interpretation: Performing Lab:[facility], [address] [place] [phone] Notes/Report: O:ESCCOL Escherichia coli Urine Culture Quant Urine Culture > 100,000 cfu/mL Ampicillin <=2 Cefazolin (Urine) <=1 Cefepime <=0.12 Ceftriaxone <=0.25 Ciprofloxacin <=0.06 Gentamicin <=1 Nitrofurantoin <=16 Trimethoprim/Sulfamethoxazo le <=20 Complete Blood Count Auto Di ff Reviewed date:01/19/2025 04:27:51 PM Interpretation: Performing Lab:[facility], [address] [place] [phone] Notes/Report: White Blood Count 7.3 4.8-10.8 X10*3/uL [...] NRBC Abs Auto 0.000 0.0-0.012 X10*3/uL Comprehensive [place]. Panel Fa st Reviewed date:01/19/2025 04:25:59 PM Interpretation: Performing Lab:[address] [phone] Notes/Report: Sodium 135 135-145 mmol/L Potassium 4.0 [...] Panel Reviewed date:01/19/2025 12:42:53 PM Interpretation: Performing Lab:[facility], [address] [place] [phone] Notes/Report: Triglycerides 117 <150 mg/dL Desirable Triglyceride: [...] t Reviewed date:01/19/2025 01:27:44 PM Interpretation: Performing Lab:[address] [phone] Notes/Report: Urine, Clean Catch Color Urine Yellow Appearance Urine Cloudy PH 6.0 5.0-9.0 Glucose Urine UA Negative Negative mg/dL Urine Blood Trace Negative Specific [place] - Urine 1.015 1.005-1.025 Urine Protein 30 [...] Culture Reviewed date:02/03/2025 11:42:31 AM Interpretation: Performing Lab:[facility], [address] [place] [phone] Notes/Report: Urine Culture No growth. UA ClnCatch+Micro w/rflx Cul t Reviewed date:02/02/2025 06:45:28 PM Interpretation: Performing Lab:[facility], [address] [place] [phone] Notes/Report: Urine, Clean Catch Color Urine Yellow Appearance Urine Clear PH 6.5 5.0-9.0 Glucose Urine UA Negative Negative mg/dL Urine Blood Negative Negative Specific [place] - Urine 1.015 1.005-1.025 Urine Protein Negative [...] Problem Status W/U Status Risk Notes Problem hypercholesterolemia (disorder) (90527773) Hypercholesteremia (272.0) Active confirmed Problem 53180660 Hypercalcemia (E83.52) Active confirmed Problem 27583082 Essential hypertension (I10) Active confirmed Problem 27192955 Hypercholesterol emia (E78.00) Active confirmed Vital Signs Blood pressure diastolic 80 mm Hg 01/25/2025 tiffany ght is down 3 pounds since 05-02-24 Height 61 in 01/25/2025 weight is down 3 pounds since 05-02-24 Blood pressure systolic 132 mm Hg 01/25/2025 weig ht is down 3 pounds since 05-02-24 Weight 118 lbs 01/25/2025 weight is down 3 pounds since 05-02-24 BMI 22.29 kg/m2 01/25/2025 weight is down 3 pounds since 05-02-24 Encounters Encounter Location Date Provider Diagnosis Mariano Sloan MD [address] [place] [id number] 04/25/2024 Mariano Sloan Hypercalcemia E83.52 ; Encounter for immunization Z23 and Hypercholesterolemia E78.00 Mariano Sloan MD [address] [id number] 01/19/2025 Mariano Sloan Hypercholesterolemia E78.00 ; Hypercalcemia E83.52 and Essential hypertension I10 Mariano Sloan MD [address] [facility] [address] [id number] 02/02/2025 Mariano Sloan Aftercare Z51.89 Mariano Sloan MD [address] [facility] [address] [id number] 05/02/2024 Mariano Sloan Hypercalcemia E83.52 and Hypercholesterolemia E78.00 Mariano Sloan MD [address] [id number] 01/25/2025 Mariano Sloan Hypercalcemia E83.52 ; Essential hypertension I10 ; Hypercholesterolemia E78.00 ; Colon cancer screening Z12.11 and Depression screening Z13.31 Mariano Sloan MD [address] [facility] [address] [id number] 01/22/2025 Mariano Sloan Assessments Encounter Date Diagnosis [...] 0 - E83.52) needs appt with endocrine [facility] 01/25/2025 Essential hypertensi on (ICD-10 - I10) [...] Details Provider Name:Mariano zuniga, 07/20/2025 08:00:00 AM, [address] [place] [address], [address], [phone], Provider Name:Mariano zuniga, 07/27/2025 10:00:00 AM, [address] [place] [address], [address], [phone], Provider Name:Mariano zuniga, 01/21/2026 07:00:00 AM, [address] [place] [address], [address], [phone], Provider Name:Mariano zuniga, 01/28/2026 09:30:00 AM, [address] [place] [address], [address], [phone], Insurance Providers Payer Name Payer Address Payer Phone Subscriber Number Group Number Insured Name Patient Relationship to Insured Coverage Start Date Coverage End Date MED[employer] [address] [place] [address] [id number] Damaris Cates Self - patient is the insured [facility] [address] [place], [place] [id number] Damaris Cates Self - patient is the insured Medical (General) History Medical History History ICD Code due for colonoscopy 02/11/24 colonoscopy- repeat 10y
--- OUTSIDE RECORDS SUMMARY | 2025-04-19 10:41 | XMS_ITS | Patient Health Record ---
Author Organization [facility] Address [address] [place] [address] Care Team Providers Care Internet Specialist Name Role Phone Mariano Sloan MD Primary Care Provider Nelson Rocha Jr [phone] Allergies No Known Allergies Reason For Referral No Information Medications Medication SIG (Take, Route, Frequency, Duration) Notes Start Date End Date Status Rosuvastatin Calcium 20 MG Oral; Duration: 90 Active Calcium 500 MG 1 tablet with meals Orally Twice a day; Duration: 30 day(s) 01/31/2024 Active MiraLax (colon prep) 17 GM/SCOOP mixed with Gatorade or Crystal Light Orally begin at 5:00 p.m. the day before the procedure; Duration: 1 day 01/31/2024 Active Immunizations Vaccine Route [...] Status W/U Status Risk Notes Problem Gastritis (6665669) Gastritis (K29.70) Active confirmed Plan Of Treatment Future Test Test Name Order Date UPPER GI ENDOSCOPY 01/31/2024 COLONOSCOPY 01/31/2024 Insurance Providers Payer Name Payer Address Payer Phone Subscriber Number Group Number Insured Name Patient Relationship to Insured Coverage Start Date Coverage End Date MEDICARE OF [place] [address] [place] [id number] ANAHI CHANCE Self - patient is the insured [employer] ATT[employer] CLAIMS [address] [place] [address] [id number] ANAHI CHANCE Self - patient is the insured Medical (General) History Medical History History ICD Code Hyperlipidemia Hypercalcemia Hemoccult-positive stools Surgical History Surgery Date(Month/Year)
== END 2025-04-19 11:00 | disposition home or self-care (01) ==
LOC: HO.ENCR 09:22
PROVIDERS: PCP Internal Medicine; Visit Provider Internal Medicine Endocrinology, Diabetes & Metabolism
DX: E83.52 Hypercalcemia (principal)
CPT/HCPCS: 99213

== ENCOUNTER → 2025-04-19 09:21 | Outpatient (BNVA) | payer MEDICARE, SELFPAY | PROVIDERS: PCP Internal Medicine; Visit Provider Internal Medicine Endocrinology, Diabetes & Metabolism | DX: E83.52 Hypercalcemia (principal) | CPT/HCPCS: 99212 ==